=== PATIENT | male | born 1955 | race Caucasian/White ===

== ENCOUNTER 2017-02-05 08:52 | Outpatient (CLI) | payer OTHER | END 2017-02-05 08:53 | disposition home or self-care (01) | DX: Z79.899 Other long term (current) drug therapy (principal); E11.9 Type 2 diabetes mellitus without complications; E55.9 Vitamin D deficiency, unspecified; Z12.5 Encounter for screening for malignant neoplasm of prostate ==

== ENCOUNTER 2017-04-02 05:52 | Day surgery (SDC) | payer MEDICARE, OTHER ==
[2017-04-02] MEDS ORDERED: LACTATED RINGERS 1,000 ML IV ONE (06:45)
[2017-04-02] MEDS ORDERED: MIDAZOLAM 2 MG/2 ML VIAL IVP ONE (08:45)
[2017-04-02] MEDS ORDERED: fentaNYL 100 MCG/2 ML VIAL IVP ONE (08:45)
[2017-04-02 09:47] VITALS: BP 113/60
== END 2017-04-02 05:53 | disposition home or self-care (01) ==
LOC: SDS 05:52
PROVIDERS: ATTEND Surgery
PROC: 0DBL8ZX Excision of Transverse Colon, Via Natural or Artificial Opening Endoscopic, Diagnostic (ICD-10-PCS; 2017-04-02)
PROC: 0DBK8ZX Excision of Ascending Colon, Via Natural or Artificial Opening Endoscopic, Diagnostic (ICD-10-PCS; principal; 2017-04-02 07:30)
DX: Z12.11 Encounter for screening for malignant neoplasm of colon (principal); D12.3 Benign neoplasm of transverse colon; K64.8 Other hemorrhoids; Z80.0 Family history of malignant neoplasm of digestive organs; E11.9 Type 2 diabetes mellitus without complications; Z79.84 Long term (current) use of oral hypoglycemic drugs; E66.9 Obesity, unspecified; K52.9 Noninfective gastroenteritis and colitis, unspecified; J45.909 Unspecified asthma, uncomplicated; G47.30 Sleep apnea, unspecified; K21.9 Gastro-esophageal reflux disease without esophagitis; Z96.641 Presence of right artificial hip joint; Z82.49 Family history of ischemic heart disease and other diseases of the circulatory system; Z86.73 Personal history of transient ischemic attack (TIA), and cerebral infarction without residual deficits; Z83.3 Family history of diabetes mellitus; Z88.5 Allergy status to narcotic agent; Z87.891 Personal history of nicotine dependence; Z68.34 Body mass index [BMI] 34.0-34.9, adult
CPT/HCPCS: 45385; J7120; 88305

== ENCOUNTER 2017-05-24 19:35 | Emergency (ER) | payer MEDICARE ==
[2017-05-24] MEDS ORDERED: LIDOCAINE 2%-EPI 1:100000 20 ML MDV SUBQ STA (21:00)
--- NOTE | 2017-05-24 21:01 | ED Physician Documentation ---
History of Present Illness - Stated complaint Stated Complaint: GROWTH ON BACKSIDE - Chief complaint Chief Complaint: General - History obtained from History obtained from: Patient, Family - History of Present Illness Timing: How many days ago (4) Pain level max: 5 Pain level now: 5 Quality: pain Improved by: nothing Worsened by: nothing - Additonal information Additional information: states abscess to buttock on the R side. Has recurred a few times. States normally can "pop" it. also states white discharge and itching under the foreskin. Review of Systems Constitutional: denies: Fever, Chills Respiratory: denies: Cough GI: denies: Nausea, Vomiting, Diarrhea : denies: Dysuria Skin: denies: Rash Musculoskeletal: denies: Neck pain, Back pain Neurologic: denies: Headache PD PAST MEDICAL HISTORY - Past Medical History Cardiovascular: None Respiratory: None Neuro: None Endocrine/Autoimmune: Type 2 diabetes GI: None : None HEENT: None, Other Psych: None Musculoskeletal: Osteoarthritis, Chronic back pain, Other Derm: Psoriasis, Other - Past Surgical History Past Surgical History: Yes Ortho: Hip replacement, Other - Present Medications Home Medications: Ambulatory Orders Medication Instructions Recorded Confirmed Albuterol Sulf [Ventolin Hfa 1 PRN 04/02/17 Inhaler] Aspirin [Aspirin EC] 1 DAILY 04/02/17 Canagliflozin [Invokana] 1 DAILY 04/02/17 Dicyclomine [Bentyl] 3 BID 04/02/17 Gabapentin [Neurontin] 1 TID 04/02/17 Glipizide [Glipizide ER] 1 BID 04/02/17 Losartan [Cozaar] 0.5 DAILY 04/02/17 Modafinil [Provigil] 1 DAILY 04/02/17 Montelukast [Singulair] 1 DAILY 04/02/17 Omeprazole [Omeprazole] 1 BID 04/02/17 Prednicarbate [Dermatop] 1 BID 04/02/17 Simvastatin [Zocor] 1 DAILY 04/02/17 Tiotropium [place] [Spiriva 1 DAILY 04/02/17 Respimat] metFORMIN [Glucophage] 2 DAILY 04/02/17 traZODone [Desyrel] 1 DAILY PM 04/02/17 Clindamycin [Cleocin] 300 mg PO Q6H #28 capsule 05/24/17 Nystatin Cream [Mycostatin Cream] 1 applic TOP BID #1 tube 05/24/17 - Allergies Allergies/Adverse Reactions: Allergies Allergy/AdvReac Type Severity Reaction Status Date / Time acetaminophen [From Vicodin] AdvReac Itching Verified 05/24/17 19:43 hydrocodone bitartrate * AdvReac Itching Verified 05/24/17 19:43 [From Vicodin] - Social History Does the pt smoke?: No Smoking Status: Never smoker Does the pt drink ETOH?: No Does the pt have substance abuse?: No - Immunizations Immunizations are current?: Yes PD ED PE NORMAL - Vitals Vital signs reviewed: Yes - General General: Alert and oriented X 3, No acute distress - Neck Neck: Supple, no meningeal sign - Respiratory Respiratory: No respiratory distress, Clear bilaterally - Abdomen Abdomen: Soft, Non tender, Non distended - Male Male : Other (white thick discharge under the foreskin. Also 2x4cm abscess to R gluteal fold. indurated, fluctuant) - Derm Derm: Warm and dry - Neuro Neuro: Alert and oriented X 3 - Psych Psych: Normal mood, Normal affect Results - Vitals Vitals: Vital Signs - 24 hr 05/24/17 05/24/17 19:39 21:44 Temperature 36.7 C Heart Rate 76 70 Respiratory 16 20 Rate Blood Pressure 153/82 H 146/76 H O2 Saturation 97 100 Oxygen O2 Source Room air Procedures - Abscess I&D (location) R gluteal fold Preparation: Confirmed with ultrasound, Chlorhexadine, Lidocaine 2 %, With epi Incision: Incised with scalpel, Purulent drainage, Irrigated, Packed, Culture obtained Other: Pt tolerated well, Dressing applied, Antibiotic prescribed PD MEDICAL DECISION MAKING - ED course Complexity details: considered differential, d/w patient ED course: Patient is a 61-year-old gentleman who presents with 2 issues tonight, the first appears to be a candidal infection of the glans of the penis, will place on nystatin for this. The second appears to be a infected pilonidal cyst. This was incised and drained. Tolerated well. Wound culture sent. Will place on antibiotics. Patient is overall well-appearing, nontoxic. Afebrile. Patient counseled regarding signs and symptoms for which I believe and urgent re -evaluation would be necessary. Patient with good understanding of and agreement to plan and is comfortable going home at this time This document was made in part using voice recognition software. While efforts are made to proofread this document, sound alike and grammatical errors may occur. Departure - Departure Disposition: 01 Home, Self Care Clinical Impression: Balanitis, Pilonidal abscess Condition: Good Instructions: ED Balanitis, ED Cyst Pilonidal Infected IandD Follow-Up: Radha Ann PA-C [Primary Care Provider] - Within 3 Days Prescriptions: Clindamycin [Cleocin] 300 mg PO Q6H #28 capsule Nystatin Cream [Mycostatin Cream] 1 applic TOP BID #1 tube Comments: Return if you worsen. The packing should be removed in 2-3 days with your doctor. Discharge Date/Time: 05/24/17 21:44
[2017-05-24] MEDS ORDERED: LIDOCAINE 1%-EPI 1:100000 20 ML MDV ONE (21:02)
[2017-05-24 21:44] VITALS: BP 146/76
== END 2017-05-24 21:44 | disposition home or self-care (01) ==
LOC: ED 19:35
DX: N48.1 Balanitis (principal); L02.31 Cutaneous abscess of buttock; E11.9 Type 2 diabetes mellitus without complications; Z79.84 Long term (current) use of oral hypoglycemic drugs; Z79.82 Long term (current) use of aspirin
CPT/HCPCS: 10060; 87070; 87205; 99283

== ENCOUNTER 2017-07-25 07:09 | Outpatient (CLI) | payer MEDICARE ==
[2017-07-25 11:52] LABS: CHOLESTEROL 149 mg/dL; HDL CHOLESTEROL 30 mg/dL; LDL/HDL RATIO 1.5 (<3.6); TRIGLYCERIDES 377 mg/dL; VLDL CHOLESTEROL 75 mg/dL
[2017-07-25 12:05] LABS: HEMOGLOBIN A1C 0.74 g/dL
== END 2017-07-25 07:10 | disposition home or self-care (01) ==
LOC: LAB.F 07:09
PROVIDERS: ATTEND Physician Assistant Medical
DX: E78.5 Hyperlipidemia, unspecified (principal); E11.9 Type 2 diabetes mellitus without complications
CPT/HCPCS: 36415; 80061; 83036

== ENCOUNTER 2017-10-24 07:47 | Outpatient (CLI) | payer OTHER ==
[2017-10-24 10:55] LABS: CHOL/HDL RATIO 4.3 (<5.0); CHOLESTEROL 126 mg/dL; HDL CHOLESTEROL 29 mg/dL; LDL/HDL RATIO 1.2 (<3.6); TRIGLYCERIDES 316 mg/dL; VLDL CHOLESTEROL 63 mg/dL
== END 2017-10-24 07:48 | disposition home or self-care (01) ==
LOC: LAB.F 07:47
PROVIDERS: ATTEND Physician Assistant Medical
DX: E78.5 Hyperlipidemia, unspecified (principal)
CPT/HCPCS: 36415; 80061

== ENCOUNTER 2017-11-20 08:18 | Outpatient (CLI) | payer MEDICARE | END 2017-11-20 08:19 | disposition critical access hospital (66) | LOC: EMS 08:18 | PROVIDERS: ATTEND Surgery | DX: R10.13 Epigastric pain (principal) | CPT/HCPCS: A0425; A0427 ==

== ENCOUNTER 2017-11-20 08:46 | Emergency (ER) | payer MEDICARE ==
[2017-11-20 09:33] LABS: BASOPHILS # (AUTO) 0.1 10^3/uL (0.0-0.1); BASOPHILS % (AUTO) 0.3 %; EOSINOPHILS % (AUTO) 0.2 %; HGB - HEMOGLOBIN 18.4 g/dL (14.0-18.0); LYMPHOCYTES # (AUTO) 0.7 10^3/uL (1.5-3.5); LYMPHOCYTES % (AUTO) 3.5 %; MEAN CORPUSCULAR HEMOGLOBIN 29.3 pg (27.0-31.0); MEAN CORPUSCULAR HGB CONC 33.9 g/dL (32.0-36.0); MEAN CORPUSCULAR VOLUME 86.4 fL (80.0-94.0); MEAN PLATELET VOLUME 8.8 fL (7.4-11.4); MONOCYTES # (AUTO) 0.8 10^3/uL (0.0-1.0); MONOCYTES % (AUTO) 4.1 %; NEUTROPHILS % (AUTO) 91.9 %; PLT - PLATELET COUNT 172 10^3/uL (130-450); RED BLOOD COUNT 6.29 10^6/uL (4.70-6.10); RED CELL DISTRIBUTION WIDTH 14.9 % (12.0-15.0); WHITE BLOOD COUNT 19.6 x10^3/uL (4.8-10.8)
[2017-11-20 09:47] LABS: ALBUMIN 5.2 g/dL (3.2-5.5); ALBUMIN/GLOBULIN RATIO 1.5 (1.0-2.2); BILIRUBIN,TOTAL 0.9 mg/dL (0.2-1.0); CALCIUM 9.8 mg/dL (8.5-10.3); CREATININE 1.2 mg/dL (0.6-1.2); PHOSPHORUS 1.8 mg/dL (2.5-4.6); TOTAL PROTEIN 8.6 g/dL (6.7-8.2)
[2017-11-20] MEDS ORDERED: IOPAMIDOL-300 100 ML VIAL ONE (09:55)
[2017-11-20] MEDS ORDERED: SODIUM CHLORIDE 0.9% 1,000 ML IV ONE (10:08)
[2017-11-20] MEDS ORDERED: IOPAMIDOL-300 100 ML VIAL IVP ONE (10:24)
--- NOTE | 2017-11-20 10:55 | CT Preliminary Report ---
Exam: CT ABDOMEN/PELVIS W/ IMPRESSION: 1. Findings are most compatible with diarrheal illness. No bowel obstruction. 2. Probable hepatic steatosis. [facility] SITE ID: [id number]
--- NOTE | 2017-11-20 10:56 | CT Report ---
EXAM: CT ABDOMEN AND PELVIS EXAM DATE: 11/20/2017 10:25 AM. CLINICAL HISTORY: Epigastric pain, diarrhea. COMPARISONS: None. TECHNIQUE: Routine helical CT imaging was performed through the abdomen and pelvis. IV contrast: 100C C ISOVUE 300. Enteric contrast: No. Reconstructions: Coronal and sagittal. In accordance with CT protocol optimization, one or more of the following dose reduction techniques w ere utilized for this exam: automated exposure control, adjustment of mA and/or KV based on patient s ize, or use of iterative reconstructive technique. FINDINGS: Lung Bases: Unremarkable. Liver: Diffusely decreased parenchymal attenuation without focal abnormality. Gallbladder/Bile Ducts: Unremarkable. Spleen: Normal. Pancreas: Normal. Adrenal Glands: Normal. Kidneys: No significant abnormality. Peritoneal Cavity/Bowel: No ascites or pneumoperitoneum. No bowel obstruction. There is a mild-to-mod erate amount of fluid throughout the colon and small bowel. Minimal diverticulosis without diverticul itis. No bowel wall thickening. No focal inflammatory fat stranding. The appendix is well visualized and normal. Pelvic Organs: Suboptimal evaluation secondary to streak artifact. No significant abnormality is demo nstrated. Vasculature: Mild atherosclerosis. Otherwise within normal limits. Bones: No significant abnormality. Other: Generator or pump in the left paramedian posterior subcutaneous soft tissues with an ascending catheter, partially imaged. IMPRESSION: 1. Findings are most compatible with diarrheal illness. No bowel obstruction. 2. Probable hepatic steatosis. [facility] Referring Provider Line: [phone] SITE ID: [id number]
[2017-11-20] MEDS ORDERED: diazePAM 5 MG TABLET PO STA (11:25)
--- NOTE | 2017-11-20 11:40 | ED Physician Documentation ---
PD HPI ABD PAIN - Stated complaint Stated Complaint: ABD PX - Chief complaint Chief Complaint: Abd Pain - History obtained from History obtained from: Patient, Family, EMS - History of Present Illness Timing - onset: Today Timing - details: Abrupt onset, Still present Quality: Cramping, Aching, Indigestion Location: Epigastric Associated symptoms: Nausea, Diarrhea. No: Fever, Vomiting Similar symptoms before: Has not had sx before Recently seen: Not recently seen - Additional information Additional information: Patient is a 62 year old male with multiple co-morbidities who is presenting to the emergency department for abdominal pain and diarrhea. patient states that it started this morning and got progressively worse, so he called ems. Review of Systems Constitutional: denies: Fever, Chills Ears: denies: Ear pain Nose: reports: Reviewed and negative Throat: reports: Reviewed and negative Cardiac: denies: Chest pain / pressure, Palpitations Respiratory: denies: Dyspnea, Cough, Wheezing GI: reports: Abdominal Pain, Nausea, Diarrhea. denies: Vomiting : denies: Dysuria, Frequency Skin: denies: Rash, Lesions Musculoskeletal: denies: Back pain, Extremity pain Neurologic: reports: Reviewed and negative Psychiatric: reports: Reviewed and negative Immunocompromised: denies: Immunocompromised PD PAST MEDICAL HISTORY - Past Medical History Past Medical History: Yes Cardiovascular: None Respiratory: Asthma, COPD Neuro: None Endocrine/Autoimmune: Type 2 diabetes GI: None : None HEENT: None, Other Psych: None Musculoskeletal: Osteoarthritis, Chronic back pain, Other Derm: Psoriasis, Other - Past Surgical History Past Surgical History: Yes Ortho: Hip replacement, Other - Present Medications Home Medications: Ambulatory Orders Medication Instructions Recorded Confirmed Albuterol Sulf [Ventolin Hfa 1 PRN 04/02/17 Inhaler] Aspirin [Aspirin EC] 1 DAILY 04/02/17 Canagliflozin [Invokana] 1 DAILY 04/02/17 Dicyclomine [Bentyl] 3 BID 04/02/17 Gabapentin [Neurontin] 1 TID 04/02/17 Glipizide [Glipizide ER] 1 BID 04/02/17 Losartan [Cozaar] 0.5 DAILY 04/02/17 Modafinil [Provigil] 1 DAILY 04/02/17 Montelukast [Singulair] 1 DAILY 04/02/17 Omeprazole [Omeprazole] 1 BID 04/02/17 Prednicarbate [Dermatop] 1 BID 04/02/17 Simvastatin [Zocor] 1 DAILY 04/02/17 traZODone [Desyrel] 1 DAILY PM 04/02/17 Clindamycin [Cleocin] 300 mg PO Q6H #28 capsule 05/24/17 Nystatin Cream [Mycostatin Cream] 1 applic TOP BID #1 tube 05/24/17 Dicyclomine [Bentyl] 10 mg PO QID #14 capsule 11/20/17 Ondansetron Odt [Zofran] 4 mg TL Q6H PRN #14 tablet 11/20/17 - Allergies Allergies/Adverse Reactions: Allergies Allergy/AdvReac Type Severity Reaction Status Date / Time acetaminophen [From Vicodin] AdvReac Itching Verified 11/20/17 09:09 hydrocodone bitartrate * AdvReac Itching Verified 11/20/17 09:09 [From Vicodin] - Social History Does the pt smoke?: No Smoking Status: Never smoker Does the pt drink ETOH?: No Does the pt have substance abuse?: No - Immunizations Immunizations are current?: Yes PD ED PE NORMAL - Vitals Vital signs reviewed: Yes - General General: Alert and oriented X 3, Well developed/nourished - HEENT HEENT: Atraumatic, PERRL, Moist mucous membranes - Neck Neck: Supple, no meningeal sign - Cardiac Cardiac: RRR, No murmur - Respiratory Respiratory: No respiratory distress - Abdomen Abdomen: Soft - Derm Derm: Normal color, Warm and dry, No rash - Extremities Extremities: No deformity, No edema - Neuro Neuro: Alert and oriented X 3, No motor deficit, No sensory deficit, Normal speech PD ED PE EXPANDED - HEENT HEENT: Moist mucous membranes - Abdomen Abdomen: Hyperactive BS, Tender to palpation, Epigastric, Generalized/diffuse. No: Rebound, Guarding Results - Vitals Vitals: Vital Signs - 24 hr 11/20/17 08:47 Temperature 35.7 C L Heart Rate 72 Respiratory 17 Rate Blood Pressure 172/117 H O2 Saturation 94 Oxygen O2 Source Room air - Labs Labs: Laboratory Tests 11/20/17 11/20/17 09:23 09:23 WBC 19.6 H RBC 6.29 H Hgb 18.4 H Hct 54.4 H MCV 86.4 MCH 29.3 MCHC 33.9 RDW 14.9 Plt Count 172 MPV 8.8 Neut # 18.0 H Lymph # 0.7 L [place] # 0.8 Eos # 0.0 Baso # 0.1 Absolute Nucleated RBC 0.06 Nucleated RBC % 0.3 Sodium 136 Potassium 3.7 Chloride 103 Carbon Dioxide 18 L Anion Gap 15.0 H BUN 16 Creatinine 1.2 Estimated GFR (MDRD) 62 L Glucose 188 H Calcium 9.8 Phosphorus 1.8 L Magnesium 2.0 Total Bilirubin 0.9 AST 40 ALT 28 Alkaline Phosphatase 123 H Total Protein 8.6 H Albumin 5.2 Globulin 3.4 Albumin/Globulin Ratio 1.5 Lipase 25 - Rads (name of study) ct abdomen and pelvis Radiology: Final report received (findings consistent with gastritis) PD MEDICAL DECISION MAKING - ED course Complexity details: reviewed old records, reviewed results, re-evaluated patient , considered differential, d/w patient, d/w family ED course: Patient was seen and examined at bedside. IV access was gained and labs were drawn. fluids and imaging were ordered. When patient returned from imaging the results were reviewed. patient's findings were consistent with gastritis, likely viral in nature. patient was able to tolerate PO without difficulty. patient required no further work up at this time and was stable for discharge with outpatient follow up. Departure - Departure Disposition: 01 Home, Self Care Clinical Impression: Gastroenteritis Condition: Good Instructions: ED Gastroenteritis Viral Follow-Up: Radha Ann PA-C [Primary Care Provider] - Within 3 Days Prescriptions: Dicyclomine [Bentyl] 10 mg PO QID #14 capsule Ondansetron Odt [Zofran] 4 mg TL Q6H PRN #14 tablet PRN Reason: Nausea / Vomiting Comments: Your diagnostics today were consistent with a gastroenteritis, likely viral in nature. It is normally self limited meaning that it will get better on its own. The most important thing is to stay well hydrated with gatorade or electrolyle solution. You can take your home pain medications as necessary. You should follow up with your doctor if your symptoms persist. You may return to the emergency department at any time, for new, worsening or uncontrollable symptoms.
[2017-11-20 13:45] VITALS: BP 126/73
== END 2017-11-20 11:52 | disposition home or self-care (01) ==
LOC: EDUNIT# → ED 08:46
DX: K52.9 Noninfective gastroenteritis and colitis, unspecified (principal); J44.9 Chronic obstructive pulmonary disease, unspecified; E11.9 Type 2 diabetes mellitus without complications; Z79.82 Long term (current) use of aspirin
CPT/HCPCS: 36415; 74177; 80053; 83690; 83735; 84100; 85025; 96360; 99283; 99284; A9270; Q9967

== ENCOUNTER 2017-12-06 09:02 | Outpatient (CLI) | payer MEDICARE ==
[2017-12-06 10:33] LABS: HB2 TOTAL 17.2 g/dL; HEMOGLOBIN A1C 0.8 g/dL; HEMOGLOBIN A1C % 6.4 % (4.6-6.2)
== END 2017-12-06 09:03 | disposition home or self-care (01) ==
LOC: LAB.F 09:02
PROVIDERS: ATTEND Physician Assistant Medical
DX: E11.9 Type 2 diabetes mellitus without complications (principal)
CPT/HCPCS: 36415; 83036

== ENCOUNTER 2018-02-25 10:59 | Outpatient (CLI) | payer MEDICARE | END 2018-02-25 11:00 | disposition home or self-care (01) | LOC: SC 10:59 | PROVIDERS: ATTEND Internal Medicine Pulmonary Disease | DX: G47.33 Obstructive sleep apnea (adult) (pediatric) (principal) | CPT/HCPCS: 99203; G0463; 99212 ==

== ENCOUNTER 2018-03-15 14:03 | Outpatient (CLI) | payer MEDICARE ==
[2018-03-15 17:47] LABS: BASOPHILS % (AUTO) 0.2 %; EOSINOPHILS # (AUTO) 0.1 10^3/uL (0.0-0.7); EOSINOPHILS % (AUTO) 0.9 %; HGB - HEMOGLOBIN 17.2 g/dL (14.0-18.0); LYMPHOCYTES # (AUTO) 0.7 10^3/uL (1.5-3.5); LYMPHOCYTES % (AUTO) 5.9 %; MEAN CORPUSCULAR HEMOGLOBIN 28.4 pg (27.0-31.0); MEAN CORPUSCULAR VOLUME 85.9 fL (80.0-94.0); MEAN PLATELET VOLUME 9.5 fL (7.4-11.4); MONOCYTES # (AUTO) 1.3 10^3/uL (0.0-1.0); MONOCYTES % (AUTO) 10.8 %; NEUTROPHILS # (AUTO) 9.6 10^3/uL (1.5-6.6); NEUTROPHILS % (AUTO) 82.2 %; PLT - PLATELET COUNT 143 10^3/uL (130-450); RED BLOOD COUNT 6.05 10^6/uL (4.70-6.10); RED CELL DISTRIBUTION WIDTH 15.2 % (12.0-15.0); WHITE BLOOD COUNT 11.7 x10^3/uL (4.8-10.8)
== END 2018-03-15 14:04 | disposition home or self-care (01) ==
LOC: LAB.F 14:03
PROVIDERS: ATTEND Orthopaedic Surgery
DX: Z01.812 Encounter for preprocedural laboratory examination (principal)
CPT/HCPCS: 36415; 85025

== ENCOUNTER 2018-04-01 15:22 | Outpatient (CLI) | payer MEDICARE ==
[2018-04-01 18:32] LABS: CALCIUM 9.2 mg/dL (8.5-10.3); CREATININE 0.9 mg/dL (0.6-1.2); HB2 TOTAL 15.7 g/dL; HEMOGLOBIN A1C 0.78 g/dL; HEMOGLOBIN A1C % 6.7 % (4.6-6.2)
== END 2018-04-01 15:23 | disposition home or self-care (01) ==
LOC: LAB.F 15:22
PROVIDERS: ATTEND Internal Medicine
DX: E11.9 Type 2 diabetes mellitus without complications (principal)
CPT/HCPCS: 36415; 80048; 82043; 83036

== ENCOUNTER 2018-04-02 15:26 | Outpatient (CLI) | payer MEDICARE | END 2018-04-02 15:27 | disposition home or self-care (01) | LOC: LAB.R 15:26 | PROVIDERS: ATTEND Internal Medicine | DX: E11.9 Type 2 diabetes mellitus without complications (principal) | CPT/HCPCS: 82043 ==

== ENCOUNTER 2018-04-13 21:22 | Outpatient (CLI) | payer MEDICARE | END 2018-04-13 21:23 | disposition home or self-care (01) | LOC: SC 21:22 | PROVIDERS: ATTEND Internal Medicine Pulmonary Disease | DX: G47.33 Obstructive sleep apnea (adult) (pediatric) (principal); G47.61 Periodic limb movement disorder | CPT/HCPCS: 95810 ==

== ENCOUNTER 2018-04-25 07:15 | Outpatient (CLI) | payer MEDICARE ==
[2018-04-25 15:53] LABS: ALBUMIN 4.4 g/dL (3.2-5.5); ALBUMIN/GLOBULIN RATIO 1.5 (1.0-2.2); BILIRUBIN,TOTAL 0.7 mg/dL (0.2-1.0); CALCIUM 9.5 mg/dL (8.5-10.3); TOTAL PROTEIN 7.4 g/dL (6.7-8.2)
[2018-04-25 16:05] LABS: BASOPHILS % (AUTO) 0.4 %; EOSINOPHILS # (AUTO) 0.2 10^3/uL (0.0-0.7); EOSINOPHILS % (AUTO) 2.6 %; HGB - HEMOGLOBIN 14.8 g/dL (14.0-18.0); LYMPHOCYTES # (AUTO) 1.7 10^3/uL (1.5-3.5); LYMPHOCYTES % (AUTO) 21.5 %; MEAN CORPUSCULAR HEMOGLOBIN 29.1 pg (27.0-31.0); MEAN CORPUSCULAR VOLUME 85.6 fL (80.0-94.0); MEAN PLATELET VOLUME 9.4 fL (7.4-11.4); MONOCYTES # (AUTO) 0.6 10^3/uL (0.0-1.0); MONOCYTES % (AUTO) 6.9 %; NEUTROPHILS # (AUTO) 5.5 10^3/uL (1.5-6.6); NEUTROPHILS % (AUTO) 68.6 %; PLT - PLATELET COUNT 135 10^3/uL (130-450); RED BLOOD COUNT 5.08 10^6/uL (4.70-6.10); WHITE BLOOD COUNT 8.1 x10^3/uL (4.8-10.8)
[2018-04-26 13:42] LABS: HEPATITIS B SURFACE ANTIGEN NON-REACTIVE (NON-REACTIVE); HEPATITIS C ANTIBODY NON-REACTIVE (NON-REACTIVE)
[2018-04-26 14:06] LABS: HIV AG/AB 4TH GEN NON-REACTIVE (NON-REACTIVE)
== END 2018-04-25 07:16 | disposition home or self-care (01) ==
LOC: LAB.F 07:15 → LAB 07:16
PROVIDERS: ATTEND Physician Assistant
DX: L40.0 Psoriasis vulgaris (principal); L29.8 Other pruritus; Z71.89 Other specified counseling; Z79.899 Other long term (current) drug therapy
CPT/HCPCS: 36415; 80053; 81599; 85025; 86803; 87340; G0475; 86480; 86703; 87389

== ENCOUNTER 2018-05-30 13:31 | Outpatient (CLI) | payer MEDICARE | END 2018-05-30 13:32 | disposition home or self-care (01) | LOC: SC 13:31 | PROVIDERS: ATTEND Nurse Practitioner Family | DX: G47.33 Obstructive sleep apnea (adult) (pediatric) (principal); G47.61 Periodic limb movement disorder | CPT/HCPCS: 99215; G0463; 99212 ==

== ENCOUNTER 2018-06-13 07:18 | Outpatient (CLI) | payer MEDICARE ==
[2018-06-13 11:46] LABS: BASOPHILS % (AUTO) 0.6 %; EOSINOPHILS # (AUTO) 0.2 10^3/uL (0.0-0.7); EOSINOPHILS % (AUTO) 2.5 %; HGB - HEMOGLOBIN 14.2 g/dL (14.0-18.0); LYMPHOCYTES # (AUTO) 1.5 10^3/uL (1.5-3.5); LYMPHOCYTES % (AUTO) 24.7 %; MEAN CORPUSCULAR HGB CONC 34.3 g/dL (32.0-36.0); MEAN CORPUSCULAR VOLUME 90.3 fL (80.0-94.0); MEAN PLATELET VOLUME 9.8 fL (7.4-11.4); MONOCYTES # (AUTO) 0.6 10^3/uL (0.0-1.0); MONOCYTES % (AUTO) 9.1 %; NEUTROPHILS # (AUTO) 3.9 10^3/uL (1.5-6.6); NEUTROPHILS % (AUTO) 63.1 %; PLT - PLATELET COUNT 118 10^3/uL (130-450); RED BLOOD COUNT 4.59 10^6/uL (4.70-6.10); WHITE BLOOD COUNT 6.2 x10^3/uL (4.8-10.8)
[2018-06-13 12:04] LABS: ALBUMIN 4.1 g/dL (3.2-5.5); ALBUMIN/GLOBULIN RATIO 1.6 (1.0-2.2); ALKALINE PHOSPHATASE 100 IU/L (42-121); ALT ALANINE AMINOTRANSFERASE 27 IU/L (10-60); AST ASPARTATE AMINOTRANSFERASE 46 IU/L (10-42); BILIRUBIN,TOTAL 0.9 mg/dL (0.2-1.0); BUN - BLOOD UREA NITROGEN 10 mg/dL (6-20); CALCIUM 9.2 mg/dL (8.5-10.3); CARBON DIOXIDE - CO2 26 mmol/L (21-32); CHLORIDE 103 mmol/L (101-111); CHOL/HDL RATIO 5.7 (<5.0); CHOLESTEROL 153 mg/dL; CREATININE 0.9 mg/dL (0.6-1.2); GFR - MDRD 86 (>89); GLUCOSE 211 mg/dL (70-100); HDL CHOLESTEROL 27 mg/dL; SODIUM 136 mmol/L (135-145); TOTAL PROTEIN 6.7 g/dL (6.7-8.2)
[2018-06-13 12:08] LABS: HB2 TOTAL 14.9 g/dL; HEMOGLOBIN A1C 0.89 g/dL; HEMOGLOBIN A1C % 7.6 % (4.6-6.2)
[2018-06-13 12:46] LABS: LDL CHOLESTEROL,DIRECT 45 mg/dL; LDLD/HDL RATIO 1.7 (<3.6)
== END 2018-06-13 07:19 | disposition home or self-care (01) ==
LOC: LAB.F 07:18
PROVIDERS: ATTEND Student in an Organized Health Care Education/Training Program
DX: E11.9 Type 2 diabetes mellitus without complications (principal)
CPT/HCPCS: 36415; 80053; 80061; 82043; 83036; 83721; 84443; 85025

== ENCOUNTER 2018-08-15 14:03 | Outpatient (CLI) | payer MEDICARE | END 2018-08-15 14:04 | disposition home or self-care (01) | LOC: RT.S 14:03 | DX: Z01.810 Encounter for preprocedural cardiovascular examination (principal) | CPT/HCPCS: 93005 ==

== ENCOUNTER 2018-08-22 07:38 | Outpatient (CLI) | payer MEDICARE ==
[2018-08-22 10:22] LABS: CALCIUM 9.2 mg/dL (8.5-10.3)
[2018-08-22 10:53] LABS: BASOPHILS % (AUTO) 0.6 %; EOSINOPHILS # (AUTO) 0.2 10^3/uL (0.0-0.7); EOSINOPHILS % (AUTO) 2.8 %; HGB - HEMOGLOBIN 14.8 g/dL (14.0-18.0); LYMPHOCYTES # (AUTO) 1.5 10^3/uL (1.5-3.5); LYMPHOCYTES % (AUTO) 21.7 %; MEAN CORPUSCULAR HEMOGLOBIN 31.1 pg (27.0-31.0); MEAN CORPUSCULAR HGB CONC 35.1 g/dL (32.0-36.0); MEAN CORPUSCULAR VOLUME 88.5 fL (80.0-94.0); MEAN PLATELET VOLUME 10.5 fL (7.4-11.4); MONOCYTES # (AUTO) 0.6 10^3/uL (0.0-1.0); NEUTROPHILS # (AUTO) 4.5 10^3/uL (1.5-6.6); NEUTROPHILS % (AUTO) 65.9 %; PLT - PLATELET COUNT 110 10^3/uL (130-450); RED BLOOD COUNT 4.76 10^6/uL (4.70-6.10); RED CELL DISTRIBUTION WIDTH 13.2 % (12.0-15.0); WHITE BLOOD COUNT 6.9 x10^3/uL (4.8-10.8)
[2018-08-22 11:04] LABS: INR 1.1 (0.8-1.2); PT - PROTHROMBIN TIME 12.2 secs (9.9-12.6)
[2018-08-22 11:39] LABS: HB2 TOTAL 15.6 g/dL; HEMOGLOBIN A1C 0.88 g/dL; HEMOGLOBIN A1C % 7.3 % (4.6-6.2)
== END 2018-08-22 07:39 | disposition home or self-care (01) ==
LOC: LAB.F 07:38
PROVIDERS: ATTEND Orthopaedic Surgery Orthopaedic Surgery of the Spine
DX: M47.22 Other spondylosis with radiculopathy, cervical region (principal)
CPT/HCPCS: 36415; 80048; 83036; 85025; 85610; 85730

== ENCOUNTER 2018-12-12 10:12 | Outpatient (CLI) | payer MEDICARE ==
[2018-12-12 18:18] LABS: HB2 TOTAL 16.1 g/dL; HEMOGLOBIN A1C 0.83 g/dL; HEMOGLOBIN A1C % 6.9 % (4.6-6.2)
[2018-12-12 18:30] LABS: ALBUMIN 4.3 g/dL (3.2-5.5); BUN - BLOOD UREA NITROGEN 9 mg/dL (6-20); CALCIUM 9.1 mg/dL (8.5-10.3); CARBON DIOXIDE - CO2 29 mmol/L (21-32); CHLORIDE 101 mmol/L (101-111); CHOLESTEROL 141 mg/dL; CREATININE 0.8 mg/dL (0.6-1.2); GFR - MDRD 98 (>89); GLUCOSE 99 mg/dL (70-100); HDL CHOLESTEROL 35 mg/dL; LDL CHOLESTEROL,CALCULATED 71 mg/dL; SODIUM 137 mmol/L (135-145); VLDL CHOLESTEROL 35 mg/dL
[2018-12-12 18:33] LABS: CREATININE,URINE 52.8 mg/dL
[2018-12-12 18:34] LABS: MICROALBUMIN,URINE < 0.2 mg/dL (0-300.0)
== END 2018-12-12 10:13 | disposition home or self-care (01) ==
LOC: LAB.F 10:12
PROVIDERS: ATTEND Student in an Organized Health Care Education/Training Program
DX: E11.9 Type 2 diabetes mellitus without complications (principal); Z79.4 Long term (current) use of insulin
CPT/HCPCS: 36415; 80061; 80069; 82043; 82570; 83036; 83721

== ENCOUNTER 2019-01-31 07:22 | Outpatient (CLI) | payer MEDICARE ==
[2019-01-31 10:15] LABS: CALCIUM 8.6 mg/dL (8.5-10.3); CREATININE 0.9 mg/dL (0.6-1.2)
[2019-01-31 10:24] LABS: HGB - HEMOGLOBIN 14.3 g/dL (14.0-18.0); MEAN CORPUSCULAR HEMOGLOBIN 29.8 pg (27.0-31.0); MEAN CORPUSCULAR HGB CONC 34.8 g/dL (32.0-36.0); MEAN CORPUSCULAR VOLUME 85.6 fL (80.0-94.0); MEAN PLATELET VOLUME 10.5 fL (7.4-11.4); RED BLOOD COUNT 4.79 10^6/uL (4.70-6.10); WHITE BLOOD COUNT 5.9 x10^3/uL (4.8-10.8)
[2019-01-31 10:42] LABS: HB2 TOTAL 15.7 g/dL; HEMOGLOBIN A1C 0.77 g/dL; HEMOGLOBIN A1C % 6.6 % (4.6-6.2)
== END 2019-01-31 07:23 | disposition home or self-care (01) ==
LOC: LAB.F 07:22
PROVIDERS: ATTEND Orthopaedic Surgery Orthopaedic Surgery of the Spine
DX: Z01.818 Encounter for other preprocedural examination (principal); R73.9 Hyperglycemia, unspecified
CPT/HCPCS: 80048; 83036; 85025; 85027

== ENCOUNTER 2019-02-04 08:14 | Outpatient (CLI) | payer MEDICARE ==
[2019-02-04 11:37] LABS: BASOPHILS % (AUTO) 0.6 %; EOSINOPHILS # (AUTO) 0.1 10^3/uL (0.0-0.7); EOSINOPHILS % (AUTO) 2.2 %; HGB - HEMOGLOBIN 10.6 g/dL (14.0-18.0); LYMPHOCYTES # (AUTO) 0.8 10^3/uL (1.5-3.5); LYMPHOCYTES % (AUTO) 18.3 %; MEAN CORPUSCULAR HEMOGLOBIN 29.8 pg (27.0-31.0); MEAN CORPUSCULAR HGB CONC 34.3 g/dL (32.0-36.0); MEAN CORPUSCULAR VOLUME 86.9 fL (80.0-94.0); MEAN PLATELET VOLUME 11.2 fL (7.4-11.4); MONOCYTES # (AUTO) 0.4 10^3/uL (0.0-1.0); MONOCYTES % (AUTO) 8.5 %; NEUTROPHILS # (AUTO) 3.1 10^3/uL (1.5-6.6); NEUTROPHILS % (AUTO) 70.4 %; PLT - PLATELET COUNT 83 10^3/uL (130-450); RED BLOOD COUNT 3.54 10^6/uL (4.70-6.10); RED CELL DISTRIBUTION WIDTH 13.4 % (12.0-15.0); WHITE BLOOD COUNT 4.4 x10^3/uL (4.8-10.8)
[2019-02-04 11:43] LABS: BILIRUBIN,TOTAL 0.7 mg/dL (0.2-1.0); CALCIUM 9.1 mg/dL (8.5-10.3)
[2019-02-04 11:44] LABS: ALBUMIN/GLOBULIN RATIO 1.6 (1.0-2.2); TOTAL PROTEIN 6.5 g/dL (6.7-8.2)
== END 2019-02-04 08:15 | disposition home or self-care (01) ==
LOC: LAB.F 08:14
PROVIDERS: ATTEND Physician Assistant Medical
DX: D69.6 Thrombocytopenia, unspecified (principal); L40.0 Psoriasis vulgaris
CPT/HCPCS: 36415; 80053; 85025

== ENCOUNTER 2019-02-09 21:34 | Outpatient (CLI) | payer MEDICARE | END 2019-02-09 21:35 | disposition critical access hospital (66) | LOC: EMS 21:34 | PROVIDERS: ATTEND Surgery | DX: R25.2 Cramp and spasm (principal); M54.9 Dorsalgia, unspecified; M79.602 Pain in left arm; M79.601 Pain in right arm; M79.605 Pain in left leg; M79.604 Pain in right leg | CPT/HCPCS: A0425; A0427 ==

== ENCOUNTER 2019-02-09 22:04 | Emergency (ER) | payer MEDICARE ==
[2019-02-09] MEDS ORDERED: SODIUM CHLORIDE 0.9% 1,000 ML IV ONE (22:19)
[2019-02-09] MEDS ORDERED: LORazepam 2 MG/ML VIAL IVP STA (22:19)
[2019-02-09] MEDS ORDERED: IBUPROFEN 800 MG TABLET PO STA (22:20)
[2019-02-09 22:40] LABS: BASOPHILS % (AUTO) 0.2 %; EOSINOPHILS % (AUTO) 0.5 %; HGB - HEMOGLOBIN 14.2 g/dL (14.0-18.0); LYMPHOCYTES # (AUTO) 0.3 10^3/uL (1.5-3.5); LYMPHOCYTES % (AUTO) 4.7 %; MEAN CORPUSCULAR HEMOGLOBIN 29.4 pg (27.0-31.0); MEAN CORPUSCULAR HGB CONC 33.4 g/dL (32.0-36.0); MEAN CORPUSCULAR VOLUME 88.1 fL (80.0-94.0); MEAN PLATELET VOLUME 9.2 fL (7.4-11.4); MONOCYTES # (AUTO) 0.3 10^3/uL (0.0-1.0); MONOCYTES % (AUTO) 4.9 %; NEUTROPHILS # (AUTO) 5.6 10^3/uL (1.5-6.6); NEUTROPHILS % (AUTO) 89.7 %; PLT - PLATELET COUNT 129 10^3/uL (130-450); RED BLOOD COUNT 4.82 10^6/uL (4.70-6.10); RED CELL DISTRIBUTION WIDTH 14.2 % (12.0-15.0); WHITE BLOOD COUNT 6.2 x10^3/uL (4.8-10.8)
[2019-02-09 22:53] LABS: ALBUMIN 3.9 g/dL (3.2-5.5); ALBUMIN/GLOBULIN RATIO 1.4 (1.0-2.2); BILIRUBIN,TOTAL 0.6 mg/dL (0.2-1.0); CALCIUM 8.6 mg/dL (8.5-10.3); TOTAL PROTEIN 6.7 g/dL (6.7-8.2)
[2019-02-09 22:55] LABS: BILIRUBIN,URINE NEGATIVE (NEGATIVE); GLUCOSE, URINE (UA) NEGATIVE (NEGATIVE); KETONES,URINE (UA) NEGATIVE (NEGATIVE); LEUKOCYTE ESTERASE, URINE NEGATIVE (NEGATIVE); NITRITE,URINE NEGATIVE (NEGATIVE); OCCULT BLOOD,URINE NEGATIVE (NEGATIVE); PH,URINE 6.5 PH (5.0-7.5); PROTEIN,URINE NEGATIVE (NEGATIVE); UROBILINOGEN,URINE 0.2 (NORMAL) E.U./dL (NORMAL)
[2019-02-09 22:57] LABS: CLARITY,URINE CLEAR (CLEAR)
--- NOTE | 2019-02-09 23:17 | ED Physician Documentation ---
History of Present Illness - Stated complaint Stated Complaint: CRAMPS/SHAKING - Chief complaint Chief Complaint: General - History obtained from History obtained from: Patient - History of Present Illness Timing: How many hours ago (2) - Additonal information Additional information: The patient is a 63-year-old male who arrives via ambulance complaining of unc ontrollable shaking. His symptoms started about 2 hours prior to arrival. He has had similar tremors in the past, since childhood, and usually gets relief with Valium. He has had cough, headache, and nausea. He denies vomiting, dysuria, or sore throat. He was recently diagnosed with urinary tract infection about 10 days ago, and has completed a course of antibiotics. Further past medical history is significant for asthma and for insulin-dependent diabetes. Review of Systems Constitutional: reports: Chills, Other (course tremors) Ears: denies: Tinnitus/ringing Nose: denies: Congestion Throat: denies: Sore throat Cardiac: denies: Chest pain / pressure Respiratory: reports: Cough. denies: Dyspnea GI: reports: Nausea. denies: Abdominal Pain, Vomiting, Diarrhea : denies: Dysuria Skin: denies: Rash Musculoskeletal: reports: Back pain (chronically) Neurologic: reports: Headache. denies: Focal weakness, Numbness PD PAST MEDICAL HISTORY - Past Medical History Cardiovascular: Hypertension, High cholesterol Respiratory: Asthma, COPD Endocrine/Autoimmune: Type 2 diabetes GI: None : None HEENT: None, Other Psych: None Musculoskeletal: Osteoarthritis, Chronic back pain, Other Derm: Psoriasis, Other - Past Surgical History Past Surgical History: Yes Ortho: Hip replacement, Other - Present Medications Home Medications: Ambulatory Orders Medication Instructions Recorded Confirmed Albuterol Sulf [Ventolin Hfa 1 PRN 04/02/17 Inhaler] Aspirin [Aspirin EC] 1 DAILY 04/02/17 Canagliflozin [Invokana] 1 DAILY 04/02/17 Dicyclomine [Bentyl] 3 BID 04/02/17 Gabapentin [Neurontin] 1 TID 04/02/17 Glipizide [Glipizide ER] 1 BID 04/02/17 Losartan [Cozaar] 0.5 DAILY 04/02/17 Modafinil [Provigil] 1 DAILY 04/02/17 Montelukast [Singulair] 1 DAILY 04/02/17 Omeprazole 1 BID 04/02/17 Prednicarbate [Dermatop] 1 BID 04/02/17 Simvastatin [Zocor] 1 DAILY 04/02/17 traZODone [Desyrel] 1 DAILY PM 04/02/17 Clindamycin [Cleocin] 300 mg PO Q6H #28 capsule 05/24/17 Nystatin Cream [Mycostatin Cream] 1 applic TOP BID #1 tube 05/24/17 Dicyclomine [Bentyl] 10 mg PO QID #14 capsule 11/20/17 Ondansetron Odt [Zofran] 4 mg TL Q6H PRN #14 tablet 11/20/17 - Allergies Allergies/Adverse Reactions: Allergies Allergy/AdvReac Type Severity Reaction Status Date / Time acetaminophen [From Vicodin] AdvReac Itching Verified 02/09/19 22:18 fluticasone [From Flonase] AdvReac Itching Verified 02/09/19 22:18 hydrocodone bitartrate * AdvReac Itching Verified 02/09/19 22:18 [From Vicodin] - Social History Does the pt smoke?: No Smoking Status: Never smoker Does the pt drink ETOH?: No Does the pt have substance abuse?: No - Immunizations Immunizations are current?: Yes PD ED PE NORMAL - Vitals Vital signs reviewed: Yes (Low-grade fever.) - General General: Alert and oriented X 3, Well developed/nourished - HEENT HEENT: Atraumatic, EOMI, Ears normal, Pharynx benign - Neck Neck: Supple, no meningeal sign, No adenopathy - Cardiac Cardiac: RRR - Respiratory Respiratory: No respiratory distress, Clear bilaterally - Abdomen Abdomen: Soft, Non tender - Back Back: No CVA TTP - Derm Derm: No rash - Extremities Extremities: No edema, No calf tenderness / cord - Neuro Neuro: Alert and oriented X 3, No motor deficit, No sensory deficit Results - Vitals Vitals: Oxygen O2 Source Room air - Labs Labs: Laboratory Tests 02/09/19 02/09/19 02/09/19 22:30 22:30 22:50 WBC 6.2 RBC 4.82 Hgb 14.2 Hct 42.5 MCV 88.1 MCH 29.4 MCHC 33.4 RDW 14.2 Plt Count 129 L MPV 9.2 Neut # (Auto) 5.6 Lymph # (Auto) 0.3 L [place] # (Auto) 0.3 Eos # (Auto) 0.0 Baso # (Auto) 0.0 Absolute Nucleated RBC 0.00 Nucleated RBC % 0.0 Sodium 137 Potassium 3.8 Chloride 104 Carbon Dioxide 24 Anion Gap 9.0 BUN 12 Creatinine 1.0 Estimated GFR (MDRD) 76 L Glucose 145 H Calcium 8.6 Total Bilirubin 0.6 AST 32 ALT 20 Alkaline Phosphatase 106 Total Protein 6.7 Albumin 3.9 Globulin 2.8 Albumin/Globulin Ratio 1.4 Lipase 46 Urine Color YELLOW Urine Clarity CLEAR Urine pH 6.5 Ur Specific [place] 1.015 Urine Protein NEGATIVE Urine Glucose (UA) NEGATIVE Urine Ketones NEGATIVE Urine Occult Blood NEGATIVE Urine Nitrite NEGATIVE Urine Bilirubin NEGATIVE Urine Urobilinogen 0.2 (NORMAL) Ur Leukocyte Esterase NEGATIVE Ur Microscopic Review NOT INDICATED Urine Culture Comments NOT INDICATED PD MEDICAL DECISION MAKING - ED course Complexity details: reviewed old records, reviewed results, re-evaluated patient, considered differential, d/w patient, d/w family ED course: The patient's presentation is most consistent with viral syndrome, presenting with tremors associated with onset of fever. He does not appear septic, and has a normal white cell count of 6.2. Urinalysis is negative. His presentation does not suggest pneumonia. Treatment in the emergency department included administration of ibuprofen 800 mg orally, normal saline 1 L IV, and lorazepam 0.5 mg IV. His tremors completely resolved, and he felt subjectively improved after the above treatment. I discussed with him and his family symptomatic treatment and outpatient follow-up, as well as potentially worrisome signs or symptoms that should prompt reevaluation in the emergency department. Departure - Departure Disposition: 01 Home, Self Care Clinical Impression: Coarse tremors, Viral syndrome Condition: Stable Instructions: ED Viral Syndrome Follow-Up: Radha Ann PA-C [Primary Care Provider] - Comments: Drink plenty of fluids. You can use Tylenol or ibuprofen as needed for fever or discomfort. Follow-up with your primary physician as planned. Return to the emergency department if you develop recurrent shaking chills, or otherwise worsening symptoms. Discharge Date/Time: 02/09/19 23:37
[2019-02-09 23:27] VITALS: BP 130/72
== END 2019-02-09 23:37 | disposition home or self-care (01) ==
LOC: EDUNIT# → ED 22:04
DX: G25.2 Other specified forms of tremor (principal); B34.9 Viral infection, unspecified; I10 Essential (primary) hypertension; E78.00 Pure hypercholesterolemia, unspecified; E11.9 Type 2 diabetes mellitus without complications; Z79.82 Long term (current) use of aspirin; Z96.649 Presence of unspecified artificial hip joint
CPT/HCPCS: 36415; 80053; 81003; 83690; 85025; 96361; 96374; 99283; A9270; J2060; 81001; 87086

== ENCOUNTER 2019-04-09 08:21 | Outpatient (CLI) | payer MEDICARE ==
--- NOTE | 2019-04-09 11:05 | Ultrasound Report ---
Reason: THROMBOCYTOPENIA Procedure Date: 04/09/2019 Accession Number: [id number] / [id number] Procedure: US - Abdomen Complete CPT Code: FULL RESULT: EXAM: ABDOMEN ULTRASOUND EXAM DATE: 04/09/2019 10:32 AM. CLINICAL HISTORY: Thrombocytopenia. COMPARISON: ABDOMEN/PELVIS W/ 11/20/2017 10:14 AM. TECHNIQUE: Real-time scanning was performed with static images obtained. FINDINGS: Liver: Upper normal in size. Normal in echotexture. 18 cm. Main portal vein flow: Hepatopetal. Gallbladder: Normal. No stones, wall thickening, or sonographic Mcneil's sign. Biliary System: Common bile duct measures 4 mm. No intrahepatic or extrahepatic ductal dilatation. Pancreas: Heterogeneously echogenic head and proximal body of pancreas likely indicating fatty infiltration. Poor visualization of the pancreatic tail. Kidneys: Right: 11.1 cm longitudinally. Normal. No contour-deforming mass, stones, or hydronephrosis. Left: 11.7 cm longitudinally. Normal. No contour-deforming mass, stones, or hydronephrosis. Spleen: 13.4 x 6 x 12 cm. Upper normal in size. Normal in echotexture. Aorta and Inferior Vena Cava: Unremarkable. Other: None. IMPRESSION: No specific abnormalities demonstrated. Liver and spleen are upper limits of normal in size. [facility]
== END 2019-04-09 08:22 | disposition home or self-care (01) ==
LOC: DI 08:21
PROVIDERS: ATTEND Internal Medicine
DX: D69.6 Thrombocytopenia, unspecified (principal)
CPT/HCPCS: 76700

== ENCOUNTER 2019-05-05 16:09 | Outpatient (CLI) | payer MEDICARE ==
--- NOTE | 2019-05-05 16:59 | XRAY Report ---
Reason: BILATERAL WRIST PAIN Procedure Date: 05/05/2019 Accession Number: [id number] / [id number] Procedure: XR - Wrist 3 View BILAT CPT Code: FULL RESULT: EXAM: BILATERAL WRIST RADIOGRAPHY EXAM DATE: 05/05/2019 04:15 PM. CLINICAL HISTORY: Bilateral wrist pain from power tool accident COMPARISON: None. TECHNIQUE: 3 views. FINDINGS: Bones: Normal. No fractures or bone lesions. Joints: Normal. No subluxations. Soft Tissues: Normal. No soft tissue swelling. IMPRESSION: Normal wrist radiography. [facility]
== END 2019-05-05 16:10 | disposition home or self-care (01) ==
LOC: DI 16:09
PROVIDERS: ATTEND Physician Assistant Medical
DX: M25.531 Pain in right wrist (principal); M25.532 Pain in left wrist

== ENCOUNTER 2019-05-07 08:46 | Outpatient (CLI) | payer MEDICARE ==
[2019-05-07 12:58] LABS: BASOPHILS % (AUTO) 0.4 %; EOSINOPHILS # (AUTO) 0.1 10^3/uL (0.0-0.7); EOSINOPHILS % (AUTO) 2.3 %; LYMPHOCYTES # (AUTO) 1.4 10^3/uL (1.5-3.5); MEAN CORPUSCULAR HEMOGLOBIN 29.7 pg (27.0-31.0); MEAN CORPUSCULAR HGB CONC 34.2 g/dL (32.0-36.0); MEAN CORPUSCULAR VOLUME 86.7 fL (80.0-94.0); MEAN PLATELET VOLUME 10.5 fL (7.4-11.4); MONOCYTES # (AUTO) 0.5 10^3/uL (0.0-1.0); NEUTROPHILS % (AUTO) 66.3 %; PLT - PLATELET COUNT 87 10^3/uL (130-450); RED BLOOD COUNT 4.73 10^6/uL (4.70-6.10); RED CELL DISTRIBUTION WIDTH 15.6 % (12.0-15.0); WHITE BLOOD COUNT 6.1 x10^3/uL (4.8-10.8)
== END 2019-05-07 08:47 | disposition home or self-care (01) ==
LOC: LAB.F 08:46
PROVIDERS: ATTEND Physician Assistant Medical
DX: D69.6 Thrombocytopenia, unspecified (principal)
CPT/HCPCS: 36415; 85025

== ENCOUNTER 2019-11-28 11:26 | Outpatient (CLI) | payer MEDICARE ==
--- NOTE | 2019-11-29 11:10 | XRAY Report ---
Reason: HEEL PAIN, RIGHT Procedure Date: 11/28/2019 Accession Number: [id number] / [id number] Procedure: XRS - Foot 3 View RT CPT Code: Final Report FULL RESULT: EXAM: RIGHT FOOT RADIOGRAPHY EXAM DATE: 11/28/2019 11:39 AM. CLINICAL HISTORY: HEEL PAIN, RIGHT. COMPARISON: None. TECHNIQUE: 3 views. FINDINGS: Bones: No acute fracture. Prominent plantar and calcaneal spurs are noted. Joints: Normal. No subluxations. Soft Tissues: Mild soft tissue prominence adjacent to the anterior calcaneal spur is noted. IMPRESSION: 1. No acute fracture. 2. Normal alignment. Plantar and Achilles spurs are noted. 3. Possible mild soft tissue swelling adjacent to the plantar calcaneal spur. Correlate for plantar fascitis symptoms. [facility]
== END 2019-11-28 11:27 | disposition home or self-care (01) ==
LOC: DI.S 11:26
PROVIDERS: ATTEND Family Medicine
DX: M79.671 Pain in right foot (principal); R22.41 Localized swelling, mass and lump, right lower limb

== ENCOUNTER 2020-03-26 10:47 | Outpatient (CLI) | payer MEDICARE ==
[2020-03-26 11:34] LABS: HB2 TOTAL 15.3 g/dL; HEMOGLOBIN A1C 0.79 g/dL; HEMOGLOBIN A1C % 6.9 % (4.6-6.2)
== END 2020-03-26 10:48 | disposition home or self-care (01) ==
LOC: LAB 10:47
PROVIDERS: ATTEND Student in an Organized Health Care Education/Training Program
DX: E11.9 Type 2 diabetes mellitus without complications (principal); Z79.4 Long term (current) use of insulin; E87.1 Hypo-osmolality and hyponatremia
CPT/HCPCS: 36415; 83036; 84295

== ENCOUNTER 2020-06-11 07:33 | Outpatient (CLI) | payer MEDICARE ==
[2020-06-11 07:48] LABS: BASOPHILS % (AUTO) 0.5 %; EOSINOPHILS # (AUTO) 0.2 10^3/uL (0.0-0.7); EOSINOPHILS % (AUTO) 2.7 %; HGB - HEMOGLOBIN 13.7 g/dL (14.0-18.0); LYMPHOCYTES # (AUTO) 1.3 10^3/uL (1.5-3.5); LYMPHOCYTES % (AUTO) 21.3 %; MEAN CORPUSCULAR HEMOGLOBIN 31.6 pg (27.0-31.0); MEAN CORPUSCULAR HGB CONC 34.9 g/dL (32.0-36.0); MEAN CORPUSCULAR VOLUME 90.8 fL (80.0-94.0); MEAN PLATELET VOLUME 11.3 fL (7.4-11.4); MONOCYTES # (AUTO) 0.5 10^3/uL (0.0-1.0); MONOCYTES % (AUTO) 9.1 %; NEUTROPHILS # (AUTO) 3.9 10^3/uL (1.5-6.6); NEUTROPHILS % (AUTO) 66.1 %; PLT - PLATELET COUNT 73 10^3/uL (130-450); RED BLOOD COUNT 4.33 10^6/uL (4.70-6.10); RED CELL DISTRIBUTION WIDTH 13.4 % (12.0-15.0)
== END 2020-06-11 07:34 | disposition home or self-care (01) ==
LOC: LAB 07:33
PROVIDERS: ATTEND Orthopaedic Surgery Orthopaedic Surgery of the Spine
DX: Z01.818 Encounter for other preprocedural examination (principal)
CPT/HCPCS: 36415; 85025; 93005

== ENCOUNTER 2020-06-16 07:00 | Outpatient (CLI) | payer MEDICARE ==
[2020-06-16 15:51] LABS: % IRON SATURATION 21 % (20-50); FERRITIN 188.9 ng/mL (23.9-336.2); IRON 67 ug/dL (45-182); TOTAL IRON BINDING CAPACITY 319 ug/dL (250-450); TRANSFERRIN 228 mg/dL (180-329)
[2020-06-16 16:44] LABS: FOLATE > 49.60 ng/mL (5.90 - >24.8)
== END 2020-06-16 07:01 | disposition home or self-care (01) ==
LOC: LAB.S 07:00
PROVIDERS: ATTEND Physician Assistant
DX: D64.9 Anemia, unspecified (principal)
CPT/HCPCS: 36415; 82607; 82728; 82746; 83540; 84466

== ENCOUNTER 2020-10-25 12:48 | Outpatient (CLI) | payer MEDICARE ==
[2020-10-25 13:13] LABS: CALCIUM 9.3 mg/dL (8.5-10.3)
[2020-10-25 13:15] LABS: BASOPHILS % (AUTO) 0.3 %; EOSINOPHILS # (AUTO) 0.1 10^3/uL (0.0-0.7); EOSINOPHILS % (AUTO) 1.3 %; HGB - HEMOGLOBIN 14.1 g/dL (14.0-18.0); LYMPHOCYTES # (AUTO) 1.1 10^3/uL (1.5-3.5); LYMPHOCYTES % (AUTO) 16.9 %; MEAN CORPUSCULAR HEMOGLOBIN 31.3 pg (27.0-31.0); MEAN CORPUSCULAR HGB CONC 34.1 g/dL (32.0-36.0); MEAN CORPUSCULAR VOLUME 91.8 fL (80.0-94.0); MEAN PLATELET VOLUME 11.3 fL (7.4-11.4); MONOCYTES # (AUTO) 0.5 10^3/uL (0.0-1.0); MONOCYTES % (AUTO) 7.2 %; NEUTROPHILS # (AUTO) 4.6 10^3/uL (1.5-6.6); PLT - PLATELET COUNT 84 10^3/uL (130-450); WHITE BLOOD COUNT 6.3 x10^3/uL (4.8-10.8)
== END 2020-10-25 12:49 | disposition home or self-care (01) ==
LOC: LAB 12:48
PROVIDERS: ATTEND Orthopaedic Surgery
DX: Z01.818 Encounter for other preprocedural examination (principal); Z01.812 Encounter for preprocedural laboratory examination
CPT/HCPCS: 36415; 80048; 85025; 93005

== ENCOUNTER 2020-12-13 08:50 | Outpatient (CLI) | payer MEDICARE ==
--- NOTE | 2020-12-13 09:09 | XRAY Report ---
PROCEDURE: Finger(s) RT INDICATIONS: PAIN IN FINGER OF RIGHT HAND TECHNIQUE: AP hand, 2 views of the right index finger(s) acquired. COMPARISON: None FINDINGS: Bones: No fractures or dislocations. No suspicious bony lesions. Soft tissues: No suspicious soft tissue calcifications. IMPRESSION: Normal right index finger. Reviewed by: Rhys Archibald on 12/13/2020 9:08 AM [facility] Approved by: Rhys Archibald on 12/13/2020 9:08 AM [facility] Station ID: [id number]
== END 2020-12-13 23:59 | disposition home or self-care (01) ==
LOC: DI.S 08:50
PROVIDERS: ATTEND Physician Assistant Medical
DX: M79.644 Pain in right finger(s) (principal)

== ENCOUNTER 2021-08-24 06:26 | Day surgery (SDC) | payer MEDICARE ==
[2021-08-24] MEDS ORDERED: LACTATED RINGERS 1,000 ML IV ONE ×2 (06:34→08:12)
[2021-08-24] MEDS ORDERED: PROPOFOL 200 MG/20 ML VIAL IVP ONE (07:13)
--- NOTE | 2021-08-24 07:17 | ANESTHESIA ---
Pre-Anesthesia VS, & Labs - Diagnosis screening, hx polyps - Procedure colonoscopy w/possible biopsies Vital Signs: Temp Pulse Resp BP Pulse Ox 36.5 C 54 L 16 135/89 H 98 08/24/21 06:35 08/24/21 06:35 08/24/21 06:35 08/24/21 06:35 08/24/21 06:35 Height: 5 ft 8 in Weight (kg): 98 kg Body Mass Index: 32.8 BMI Classification: Obese - NPO Last Fluid Intake: apple juice 0400 - Lab Results Current Lab Results: Laboratory Tests 08/24/21 06:56: POC Whole Bld Glucose 140 H Lab results reviewed: Yes Home Medications and Allergies Albuterol Sulf [Ventolin Hfa Inhaler] 1 puffs ORAL DAILY 04/02/17 Gabapentin [Neurontin] 1 tab ORAL TID 04/02/17 Glipizide [Glipizide ER] 1 - 2 tab ORAL BID 04/02/17 Losartan [Cozaar] 0.5 tab ORAL DAILY 04/02/17 Modafinil [Provigil] 1 tab ORAL BID 04/02/17 Omeprazole 1 tab ORAL BID 04/02/17 Prednicarbate [Dermatop] 1 cm TOP BID 04/02/17 Simvastatin [Zocor] 2 tab ORAL QPM 04/02/17 traZODone [Desyrel] 1 tab ORAL DAILY PM 04/02/17 Cholecalciferol [Vitamin D3] 5,000 unit PO DAILY 06/24/19 Cyanocobalamin (Vitamin B-12) [Vitamin B-12] 1,000 mcg PO DAILY 06/24/19 Diazepam [Valium] 10 mg PO Q8H PRN 06/24/19 Diphenoxylate HCl/Atropine [Diphenoxylate-Atrop 2.5-0.025] 1 each PO DAILY PRN 06/24/19 Ferrous Gluconate [Iron] 65 mg PO DAILY 06/24/19 Folic Acid 1 mg PO DAILY 06/24/19 Insulin NPH Human Isophane [Humulin N Kwikpen] 17 - 19 unit SUBQ BIDWM 06/24/19 Metoclopramide HCl 5 mg PO DAILY PRN 06/24/19 Ofloxacin 5 ml LEFTEAR DAILY 06/24/19 Oxycodone HCl 5 mg PO Q6H PRN 06/24/19 diphenhydrAMINE [Benadryl] 50 mg PO Q4-6H PRN 06/24/19 prednisoLONE [Prednisolone] 15 mg LEFTEAR DAILY 06/24/19 Ciproflox/Dexameth Otic Drops [Ciprodex Otic Drops] 1 drops EACHEYE DAILY 12/31/19 traMADol [Ultram] 50 mg PO DAILY 12/31/19 Allergies/Adverse Reactions: Allergies Allergy/AdvReac Type Severity Reaction Status Date / Time acetaminophen [From Vicodin] AdvReac Itching Verified 06/29/21 09:54 fluticasone [From Flonase] AdvReac Itching Verified 06/29/21 09:54 hydrocodone bitartrate * AdvReac Itching Verified 06/29/21 09:54 [From Vicodin] Anes History & Medical History - Anesthetic History Anesthesia Complications: reports: No previous complications Family history of Anesthesia Complications: Denies Family history of Malignant Hyperthermia: Denies - Medical History Cardiovascular: reports: High cholesterol Pulmonary: reports: Asthma, Sleep apnea, CPAP use Gastrointestinal: reports: GERD, Colon polyps Urinary: reports: None Neuro: reports: None Musculoskeletal: reports: Osteoarthritis, Hemiplegia, Chronic back pain Endocrine/Autoimmune: reports: Type 2 diabetes Blood Disorders: reports: None Skin: reports: Psoriasis Smoking Status: Never smoker - Surgical History Eyes Ears Nose Throat (EENT): reports: Myringotomy (tubes), Other Orthopedic: reports: Hip replacement, Knee replacement, Carpal Tunnel surgery, Spine surgery (cervical fusion, spinal cord stimulator), Other Exam General: Alert, Oriented x3, Cooperative Dental: WNL Mouth Openin Fingerbreadth Neck Mobility: Reduced Mallampati classification: II Thyromental Distance: 4-6 cm Respiratory: Lungs clear, Normal breath sounds, No respiratory distress Cardiovascular: Regular rate Neurological: Normal speech Mental/Cognitive Status: Alert/Oriented X3, Normal for patient Cognitive Status: Within normal limits Plan Anesthesia Type: Total IV Consent for Procedure(s) Verified and Reviewed: Yes Code Status: Attempt Resuscitation ASA classification: 2-Mild systemic disease Is this case an emergency?: No
[2021-08-24] MEDS ORDERED: MIDAZOLAM 2 MG/2 ML VIAL ONE (07:55)
[2021-08-24] MEDS ORDERED: fentaNYL 100 MCG/2 ML VIAL ONE (07:55)
[2021-08-24 08:31] VITALS: BP 128/86
--- NOTE | 2021-08-24 09:56 | ANESTHESIA POST OP EVALUATION ---
Anesthesia Post Eval - Post Anesthesia Eval Vitals: Last Vital Signs Temp 36.2 C L 08/24/21 08:30 Pulse 57 L 08/24/21 08:30 Resp 16 08/24/21 08:30 BP 128/86 H 08/24/21 08:30 Pulse Ox 100 08/24/21 08:30 CV Function Including HR & BP: Stable Pain Control: Satisfactory Nausea & Vomiting: Negative Mental Status: Baseline Respiratory Status: Airway Patent Hydration Status: Satisfactory Anesthesia Complications: None
== END 2021-08-24 06:27 | disposition home or self-care (01) ==
LOC: SDS 06:26
PROVIDERS: ATTEND Surgery
PROC: 0DBK8ZZ Excision of Ascending Colon, Via Natural or Artificial Opening Endoscopic (ICD-10-PCS; principal; 2021-08-24 07:30)
DX: Z12.11 Encounter for screening for malignant neoplasm of colon (principal); D12.2 Benign neoplasm of ascending colon; K57.30 Diverticulosis of large intestine without perforation or abscess without bleeding; K64.8 Other hemorrhoids; E11.9 Type 2 diabetes mellitus without complications; D69.6 Thrombocytopenia, unspecified; I10 Essential (primary) hypertension; E78.5 Hyperlipidemia, unspecified; J45.909 Unspecified asthma, uncomplicated; G47.30 Sleep apnea, unspecified; K21.9 Gastro-esophageal reflux disease without esophagitis; G89.29 Other chronic pain; M54.9 Dorsalgia, unspecified; H91.90 Unspecified hearing loss, unspecified ear; E66.9 Obesity, unspecified; Z68.32 Body mass index [BMI] 32.0-32.9, adult; E78.00 Pure hypercholesterolemia, unspecified; Z79.4 Long term (current) use of insulin; Z79.52 Long term (current) use of systemic steroids; Z79.899 Other long term (current) drug therapy; Z96.649 Presence of unspecified artificial hip joint; Z96.659 Presence of unspecified artificial knee joint; Z98.1 Arthrodesis status; G47.33 Obstructive sleep apnea (adult) (pediatric); J43.9 Emphysema, unspecified; Z80.0 Family history of malignant neoplasm of digestive organs; Z87.891 Personal history of nicotine dependence
CPT/HCPCS: 45385; J7120

== ENCOUNTER 2021-09-26 09:26 | Outpatient (CLI) | payer MEDICARE ==
--- NOTE | 2021-09-26 20:30 | SLEEP CARE CONSULTATION ---
Information from patient questionnaire entered by Koki Vital. I have reviewed and concur with the information entered by Koki Vital. This document represents the service I personally performed and the decisions made by me, Qamar Calvert MD, [facility]. History of Present Illness Service Date and Time: 09/26/2021925 Reason for Visit: New patient, Previously diagnosed sleep apnea (Moderate Obstructive Sleep Apnea, AHI 22.4), sleep apnea on CPAP therapy, Re-establish care Chief Complaint: reports: Insomnia Date of Onset: 10 years Usual bedtime: 2200 Time it takes to fall asleep: 5-10 minutes Snores at night: No Observed to quit breathing while asleep: Yes Sleeps alone due to snoring: No Number of times waking at night: 2-3 Reasons for waking at night: reports: Bathroom, Other (unknown reason) Toss, Turn, or Twitch while sleeping: Yes Recalls having dreams: Yes Usually gets out of bed at: 0500 Feels refreshed in the morning: No Morning headache: No Sleepy or fatigued during the day: Yes Ever fallen asleep while driving: No Takes day naps: No Dreams during day naps: No Prior sleep studies: Yes Year and Where: 03/2018 [facility] Type of Sleep Study: Polysomnography Additional HPI information: I had the pleasure of seeing Mr. Reyez today regarding obstructive sleep apnea- hypopnea. As you know, he is a 65 year old gentleman who was diagnosed with the sleep-disordered breathing here in 2018. The AHI was 22.4 and jorge a oxygen saturation, 84%. He was prescribed a CPAP device set at 8 12 cmH2O. He uses the Respironics DreamStation 2 device every night and all night. The compliance data show usage in 171 out of the past 180 nights, averaging 6.6 hours a night. The residual AHI is 1.5 and average time in large leak per day is 45 seconds. He wears a Respironics Wisp nasal mask. He gets his supplies from [employer]. He finds the treatment beneficial. The patient complains of insomnia where he wakes up during the night and lies awake for an hour. He thinks he gets about 5 hours of sleep a night. The patient tells me that he normally goes to bed around 10 pm, and it takes him approximately 5 10 minutes to fall asleep. He takes a sleep aid. He can recall waking up on the average of 2 - 3 times during the night. Most of the time he wakes up because of pain. In the morning he usually gets up out of the bed around 5 - 7 a.m. not feeling refreshed nor rested. During the day he complains of feeling fatigued but not sleepy. His score on [place] Sleepiness Scale is 2 out of 24. He takes modafinil in the morning to help clear the mind. He usually does not take naps during the day. - Parasomnia Symptoms Ever been unable to move upon waking from sleep: No Walks in sleep: Yes Talks in sleep: No Ever acted out dreams in sleep: No Ever felt weak in the knees when startled or emotional: No Bothered by creepy, crawly, restless sensations in legs: Yes Problems with memory or concentration: No CPAP Compliance Data - Data Reviewed with Patient Average duration of nightly device use: 6 hours 56 minutes Compliance rate %: 92.2 Current pressure setting (cmH2O): 8-12 Average residual AHI: 1.5 Average large leak: 45 seconds Subjective Initial [place] Sleepiness Scale score: 2 (in 2020) Past Medical History Past Medical History: reports: Diabetes, Stroke (01/12/2008), Arthritis, Asthma, GERD, Other (back/neck/ankle/right hip/both hands pain) Social History The patient's occupation is a RE. Patient is and lives in [place]. Have you smoked in the past 12 months: No Cigarettes per day (20/pack): 40 Years of smokin Quit date: 2000 Smoking Pack Years: 60.0 Alcohol use: Yes Alcohol amount and frequency: rarely Caffeine use: Yes Caffeine amount and frequency: 2 a day Family History Family history of sleep disordered breathing: Yes Family Hx Sleep Apnea: Mother: Snoring (sister), Sleep apnea - Treated (brother), Father: Snoring, Sleep apnea - Treated, Other: Snoring, Sleep apnea - Treated Allergies and Home Medications Drug allergies reviewed: Yes Home medication list reviewed: Yes Review of Systems Weight loss over past 5 years: 30 Cardiovascular: denies: high blood pressure, palpitations, chest pain, irregular heart rate or pulse, leg or foot swelling, have to sleep sitting up, other Respiratory: reports: chronic cough (with mask) Gastrointestinal: reports: heartburn Urinary: reports: urgency (sometimes) Neurological: denies: headaches, seizure, head trauma, disorientation, speech dysfunction, gait or balance problems, fainting or unconsciousness, other Ear/Nose/Throat: reports: nasal congestion, sinus problems, injury to nose, wisdom teeth removed Endocrine: reports: sluggishness Musculoskeletal: reports: joint pain, neck pain, back pain, muscle pain or cramping, mobility problems Immunologic: reports: allergies to food or environment (*environment) Physical Exam Vital signs obtained and entered by: To minimize the risk of COVID-19 exposure, detailed exam was not performed. Height: 5 ft 8 in Impression and Plan IMPRESSION: 1. Obstructive Sleep Apnea-Hypopnea Syndrome, as previously d iagnosed. The patient is doing well on the CPAP therapy. The current pressure setting appears effective and comfortable. No adjustment is necessary today. 2. Insomnia, involving sleep maintenance, partly due to back pain that prevents him from lying in bed too long at a time. There is most likely a component of sleep state misperception because he is not sleepy during the day at all ([place] Sleepiness Scale score is only 2). On weekends he does spend excessive time in bed from 10 pm to 7 am. I recommend he gets out of bed no later than 5 am every morning. Plan: 1. Continue with CPAP set at 8 12 cmH2O. 2. Wake up at 5 am every morning. 3. Try to lose weight. 4. Return for follow up in a year or earlier if there is any problem. Follow up with Sleep Care in: 1 year Visit Type: In Office Time Spent with Patient (minutes): 25 Provider Statement: I spent 100% of the Face to Face Visit with the patient with greater than 50% spent counseling the patient and coordination of care.
== END 2021-09-26 09:27 | disposition home or self-care (01) ==
LOC: SC 09:26
PROVIDERS: ATTEND Internal Medicine Pulmonary Disease
DX: G47.33 Obstructive sleep apnea (adult) (pediatric) (principal); G47.09 Other insomnia; M54.9 Dorsalgia, unspecified
CPT/HCPCS: 99202; G0463; 99212

== ENCOUNTER 2022-01-02 07:04 | Outpatient (CLI) | payer MEDICARE ==
[2022-01-02 14:26] LABS: BASOPHILS % (AUTO) 0.5 %; EOSINOPHILS # (AUTO) 0.1 10^3/uL (0.0-0.7); EOSINOPHILS % (AUTO) 1.9 %; HCT - HEMATOCRIT 43.1 % (42.0-52.0); HGB - HEMOGLOBIN 14.7 g/dL (14.0-18.0); LYMPHOCYTES # (AUTO) 1.2 10^3/uL (1.5-3.5); LYMPHOCYTES % (AUTO) 20.8 %; MEAN CORPUSCULAR HEMOGLOBIN 30.5 pg (27.0-31.0); MEAN CORPUSCULAR HGB CONC 34.1 g/dL (32.0-36.0); MEAN CORPUSCULAR VOLUME 89.4 fL (80.0-94.0); MEAN PLATELET VOLUME 12.2 fL (7.4-11.4); MONOCYTES # (AUTO) 0.5 10^3/uL (0.0-1.0); NEUTROPHILS # (AUTO) 3.8 10^3/uL (1.5-6.6); NEUTROPHILS % (AUTO) 67.6 %; PLT - PLATELET COUNT 66 10^3/uL (130-450); RED BLOOD COUNT 4.82 10^6/uL (4.70-6.10); RED CELL DISTRIBUTION WIDTH 13.1 % (12.0-15.0); WHITE BLOOD COUNT 5.7 x10^3/uL (4.8-10.8)
[2022-01-02 15:23] LABS: ALBUMIN/GLOBULIN RATIO 1.5 (1.0-2.2); BILIRUBIN,TOTAL 0.5 mg/dL (0.2-1.0); CALCIUM 8.9 mg/dL (8.5-10.3); TOTAL PROTEIN 6.6 g/dL (6.7-8.2)
[2022-01-02 20:37] LABS: ESTIMATED AVERAGE GLUCOSE 140 mg/dL (70-100); HEMOGLOBIN A1c% 6.5 % (4.27-6.07)
== END 2022-01-02 07:05 | disposition home or self-care (01) ==
LOC: LAB.S 07:04
PROVIDERS: ATTEND Internal Medicine
DX: E11.9 Type 2 diabetes mellitus without complications (principal); Z12.5 Encounter for screening for malignant neoplasm of prostate
CPT/HCPCS: 36415; 80053; 83036; 85025; G0103; 84153

== ENCOUNTER 2022-01-20 09:02 | Outpatient (CLI) | payer MEDICARE ==
[2022-01-20 16:17] LABS: BILIRUBIN,URINE NEGATIVE (NEGATIVE); GLUCOSE, URINE (UA) >=1000 mg/dL (NEGATIVE); KETONES,URINE (UA) NEGATIVE (NEGATIVE); LEUKOCYTE ESTERASE, URINE NEGATIVE (NEGATIVE); NITRITE,URINE NEGATIVE (NEGATIVE); OCCULT BLOOD,URINE NEGATIVE (NEGATIVE); PROTEIN,URINE NEGATIVE (NEGATIVE); UROBILINOGEN,URINE 0.2 (NORMAL) E.U./dL (NORMAL)
[2022-01-20 16:18] LABS: CLARITY,URINE CLEAR (CLEAR)
== END 2022-01-20 09:03 | disposition home or self-care (01) ==
LOC: LAB.S 09:02
PROVIDERS: ATTEND Internal Medicine
DX: I10 Essential (primary) hypertension (principal)
CPT/HCPCS: 81001; 81003

== ENCOUNTER 2022-07-25 08:00 | Outpatient (CLI) | payer MEDICARE ==
--- NOTE | 2022-07-25 10:41 | XRAY Report ---
PROCEDURE: Elbow 3 View RT INDICATIONS: RIGHT ELBOW PAIN TECHNIQUE: 3 views of the elbow were acquired. COMPARISON: None. FINDINGS: Bones: No fractures or dislocations. No suspicious bony lesions. Soft tissues: No posterior elbow joint effusion. No suspicious soft tissue calcifications. IMPRESSION: No fracture identified. Reviewed by: Xander Sherwood MD on 07/25/2022 10:40 AM PDT Approved by: Xander Sherwood MD on 07/25/2022 10:40 AM PDT Station ID: [id number]
--- NOTE | 2022-07-25 10:44 | XRAY Report ---
PROCEDURE: Knee 3 View RT INDICATIONS: RIGHT KNEE PAIN TECHNIQUE: 3 views of the right knee(s) were acquired. COMPARISON: None. FINDINGS: Bones: No fractures or dislocations. No suspicious bony lesions. Soft tissues: No joint effusion. No suspicious soft tissue calcifications. Vascular calcifications. IMPRESSION: No acute osseous abnormality. Reviewed by: Xander Sherwood MD on 07/25/2022 10:42 AM PDT Approved by: Xander Sherwood MD on 07/25/2022 10:42 AM PDT Station ID: [id number]
== END 2022-07-25 23:59 | disposition home or self-care (01) ==
LOC: DI.S 08:00
PROVIDERS: ATTEND Physician Assistant Medical
DX: M25.521 Pain in right elbow (principal); M25.561 Pain in right knee

== ENCOUNTER 2022-08-04 09:18 | Outpatient (CLI) | payer MEDICARE ==
[2022-08-04 15:21] LABS: ALBUMIN 4.1 g/dL (3.2-5.5); ALBUMIN/GLOBULIN RATIO 1.5 (1.0-2.2); ALKALINE PHOSPHATASE 90 IU/L (42-121); ALT ALANINE AMINOTRANSFERASE 19 IU/L (10-60); AST ASPARTATE AMINOTRANSFERASE 30 IU/L (10-42); BILIRUBIN,TOTAL 0.6 mg/dL (0.2-1.0); BUN - BLOOD UREA NITROGEN 14 mg/dL (6-20); CALCIUM 9.1 mg/dL (8.5-10.3); CARBON DIOXIDE - CO2 26 mmol/L (21-32); CHLORIDE 105 mmol/L (101-111); CHOL/HDL RATIO 3.8 (<5.0); CHOLESTEROL 109 mg/dL; GFR - MDRD 75 (>89); GLUCOSE 128 mg/dL (70-100); HDL CHOLESTEROL 29 mg/dL; LDL CHOLESTEROL,CALCULATED 37 mg/dL; LDL/HDL RATIO 1.3 (<3.6); POTASSIUM 4.2 mmol/L (3.5-5.0); SODIUM 136 mmol/L (135-145); TOTAL PROTEIN 6.8 g/dL (6.7-8.2); TRIGLYCERIDES 214 mg/dL; VLDL CHOLESTEROL 43 mg/dL
[2022-08-04 15:31] LABS: THYROID STIMULATING HORMONE 2.23 uIU/mL (0.34-5.60)
[2022-08-04 20:04] LABS: ESTIMATED AVERAGE GLUCOSE 134 mg/dL (70-100); HEMOGLOBIN A1c% 6.3 % (4.27-6.07)
== END 2022-08-04 09:19 | disposition home or self-care (01) ==
LOC: LAB.S 09:18
PROVIDERS: ATTEND Registered Nurse
DX: E11.9 Type 2 diabetes mellitus without complications (principal); E78.5 Hyperlipidemia, unspecified; Z76.0 Encounter for issue of repeat prescription; I10 Essential (primary) hypertension
CPT/HCPCS: 36415; 80053; 80061; 83036; 83721; 84443

== ENCOUNTER 2022-10-05 08:38 | Outpatient (CLI) | payer MEDICARE ==
[2022-10-05 14:33] LABS: ESTIMATED AVERAGE GLUCOSE 140 mg/dL (70-100); HEMOGLOBIN A1c% 6.5 % (4.27-6.07)
[2022-10-05 14:56] LABS: CREATININE,URINE 48.5 mg/dL
[2022-10-05 14:57] LABS: MICROALBUMIN,URINE < 0.2 mg/dL (0-300.0)
== END 2022-10-05 08:39 | disposition home or self-care (01) ==
LOC: LAB.S 08:38
PROVIDERS: ATTEND Registered Nurse
DX: E11.9 Type 2 diabetes mellitus without complications (principal)
CPT/HCPCS: 36415; 82043; 82570; 83036

== ENCOUNTER 2023-05-18 17:57 | Emergency (ER) | payer MEDICARE ==
[2023-05-18] MEDS ORDERED: HYDROmorphone 1 MG/ML CARPUJECT IVP STA ×2 (18:16→19:58)
--- NOTE | 2023-05-18 18:18 | ED Physician Documentation ---
PD HPI ABD PAIN - Stated complaint Stated Complaint: ABD PX, DIARRHEA - Chief complaint Chief Complaint: Abd Pain - History obtained from History obtained from: Patient - Additional information Additional information: 67-year-old gentleman with type 2 diabetes on insulin, chronic back pain with a spinal stimulator in place, and pancytopenia being monitored by heme-onc presents with a week of stabbing upper abdominal pain associated with watery loose stools. There is no blood in the stool. No fevers. No nausea. No sick contacts, recent travel, recent antibiotic use, or recent camping. PD PAST MEDICAL HISTORY - Past Medical History Cardiovascular: High cholesterol Respiratory: Asthma, Sleep apnea, CPAP use Neuro: None Endocrine/Autoimmune: Type 2 diabetes GI: GERD, Colon polyps : None HEENT: Chronic vision loss, Chronic hearing loss Psych: None Musculoskeletal: Osteoarthritis, Hemiplegia, Chronic back pain Derm: Psoriasis - Past Surgical History Past Surgical History: Yes Ortho: Hip replacement, Knee replacement, Carpal Tunnel surgery, Spine surgery (cervical fusion, spinal cord stimulator), Other HEENT: Myringotomy (tubes), Other - Present Medications Home Medications: Ambulatory Orders Medication Instructions Recorded Confirmed Albuterol Sulf [Ventolin Hfa 1 puffs ORAL DAILY 04/02/17 05/18/23 Inhaler] Gabapentin [Neurontin] 1 tab ORAL TID 04/02/17 05/18/23 Glipizide [Glipizide ER] 1 - 2 tab ORAL BID 04/02/17 05/18/23 Losartan [Cozaar] 25 tab ORAL DAILY 04/02/17 05/18/23 Modafinil [Provigil] 1 tab ORAL BID 04/02/17 05/18/23 Omeprazole 1 tab ORAL BID 04/02/17 05/18/23 Simvastatin [Zocor] 2 tab ORAL QPM 04/02/17 05/18/23 traZODone [Desyrel] 1 tab ORAL DAILY PM 04/02/17 05/18/23 Cholecalciferol [Vitamin D3] 5,000 unit PO DAILY 06/24/19 04/06/22 Cyanocobalamin (Vitamin B-12) 1,000 mcg PO DAILY 06/24/19 04/06/22 [Vitamin B-12] Diphenoxylate HCl/Atropine 1 each PO DAILY PRN 06/24/19 04/06/22 [Diphenoxylate-Atrop 2.5-0.025] Ferrous Gluconate [Iron] 65 mg PO DAILY 06/24/19 04/06/22 Folic Acid 1 mg PO DAILY 06/24/19 04/06/22 Insulin NPH Human Isophane 15 unit SUBQ BIDWM 06/24/19 05/18/23 [Humulin N Kwikpen] Metoclopramide HCl 5 mg PO DAILY PRN 06/24/19 05/18/23 Ofloxacin 5 ml LEFTEAR DAILY 06/24/19 04/06/22 Ciproflox/Dexameth Otic Drops 4 drops EACHEYE BID 12/31/19 04/06/22 [Ciprodex Otic Drops] Aspirin [Vazalore] 81 mg PO DAILY 04/06/22 05/18/23 Calcipotriene 60 ml TP BID 04/06/22 04/06/22 Calcipotriene [Dovonex] 60 gm TP BID 04/06/22 04/06/22 Cyclobenzaprine [Flexeril] 10 mg PO TID PRN 04/06/22 04/06/22 Montelukast [Singulair] 10 mg PO QPM 04/06/22 05/18/23 Morphine Sulfate [Morphine Sulfate 15 mg PO 04/06/22 2mg/ml soln] Ondansetron Odt [Zofran Odt] 4 mg TL Q6H PRN 04/06/22 04/06/22 Ciprofloxacin HCl [Cipro] 500 mg PO BID #14 tablet 05/18/23 metroNIDAZOLE [Flagyl] 500 mg PO TID 7 Days #21 tablet 05/18/23 oxyCODONE [Roxicodone] 5 mg PO Q4-6H PRN #15 tablet 05/18/23 - Allergies Allergies/Adverse Reactions: Allergies Allergy/AdvReac Type Severity Reaction Status Date / Time acetaminophen [From Vicodin] AdvReac Itching Verified 06/29/21 09:54 fluticasone [From Flonase] AdvReac Itching Verified 06/29/21 09:54 hydrocodone bitartrate * AdvReac Itching Verified 06/29/21 09:54 [From Vicodin] - Social History Does the pt smoke?: No Smoking Status: Never smoker Does the pt drink ETOH?: No Does the pt have substance abuse?: No - Immunizations Immunizations are current?: Yes PD ED PE NORMAL - Vitals Vital signs reviewed: Yes - General General: Alert and oriented X 3, No acute distress - Cardiac Cardiac: RRR, No murmur - Respiratory Respiratory: No respiratory distress - Abdomen Abdomen: Normal bowel sounds, Soft, Other (He has a ventral hernia and is tender in the upper abdomen. Not specifically the hernia though.) - Back Back: No CVA TTP, No spinal TTP - Derm Derm: Normal color, Warm and dry - Extremities Extremities: No edema, No calf tenderness / cord - Neuro Neuro: Alert and oriented X 3, Normal speech Results - Vitals Vitals: Vital Signs - 24 hr 05/18/23 18:04 Temperature 36.7 C Heart Rate 89 Respiratory 18 Rate Blood Pressure 152/88 H O2 Saturation 98 Oxygen O2 Source Room air - Labs Labs: Laboratory Tests 05/18/23 05/18/23 05/18/23 18:08 18:22 18:22 WBC 7.7 RBC 5.52 Hgb 16.4 Hct 47.9 MCV 86.8 MCH 29.7 MCHC 34.2 RDW 13.3 Plt Count 100 L MPV 10.9 Neut # (Auto) 5.7 Lymph # (Auto) 1.1 L [place] # (Auto) 0.7 Eos # (Auto) 0.1 Baso # (Auto) 0.0 Absolute Nucleated RBC 0.00 Nucleated RBC % 0.0 Sodium 137 Potassium 3.7 Chloride 103 Carbon Dioxide 24 Anion Gap 10.0 BUN 10 Creatinine 0.9 Estimated GFR (MDRD) 85 L Glucose 155 H POC Whole Bld Glucose 144 H Calcium 10.0 Total Bilirubin 1.2 H AST 28 ALT 18 Alkaline Phosphatase 110 Total Protein 8.6 H Albumin 4.6 Globulin 4.0 Albumin/Globulin Ratio 1.1 Lipase 42 - Rads (name of study) CT abdomen pelvis showing colitis and liquid stool in the colon Relevant Findings:: Final report received, EMP independent interpretation of test PD Medical Decision Making - ED course ED course: 67-year-old gentleman with history of diabetes presents with abdominal pain and diarrhea. CBC and CMP are grossly normal save modest hyperglycemia. CT showing colitis. The syndrome is consistent with a bacterial colitis and is treated with Cipro and Flagyl here. Departure - Departure Disposition: 01 Home, Self Care Clinical Impression: Colitis Condition: Good Record reviewed to determine appropriate education?: Yes Instructions: ED Diarrhea Bacterial Prescriptions: Ciprofloxacin HCl [Cipro] 500 mg PO BID #14 tablet metroNIDAZOLE [Flagyl] 500 mg PO TID 7 Days #21 tablet oxyCODONE [Roxicodone] 5 mg PO Q4-6H PRN #15 tablet PRN Reason: Pain Comments: You were seen today for colitis. This is generally related to an infection. A stool culture and some other stool studies are pending. We will call you if they show something that would require change in antibiotics. Otherwise I sent the antibiotics as well as the prescription for some extra [facility] in [place]. Call your doctor to arrange a follow-up appointment, make the next available appointment. In the interim, return anytime if worse or if new symptoms develop. I am prescribing a short course of narcotic pain medication for you. These are potentially dangerous and addictive medications that should be used carefully. These medications may constipate you. Take an [id number] stool softener (docusate) twice daily with plenty of water while taking these medications. If you go 24 hours without a bowel movement, take orux-wtf-usmrazs miralax, per package instructions. Do not drink or drive while taking these medications. If you received narcotic or sedating medications while in the emergency department, do not drive for 24 hours. Store this medication in a safe, secure place and out of reach of children. It is a violation of federal law to give or sell this medication to another person or to use in a manner other than prescribed. The ED will not refill narcotic prescriptions, including prescriptions lost or stolen. To dispose of unwanted medications: 1. [facility] provides a drop box for medication in pill form only (no liquids) 8:00 am to 4:30 p.m. Sunday-Sunday in the lobby of the [facility] [place], [address] [place] [address]. Empty pills into ziplock bag before disposal. Call [phone] for information. 2.[employer] is a free service available to all [facility] residents. Go to [email or web address] Note that many narcotic pain relievers also contain Tylenol/acetaminophen. Please ensure that your total dose of acetaminophen from all sources does not exceed 3 g (3000 mg) per day.
[2023-05-18 18:32] LABS: BASOPHILS % (AUTO) 0.3 %; EOSINOPHILS # (AUTO) 0.1 10^3/uL (0.0-0.7); EOSINOPHILS % (AUTO) 1.3 %; HCT - HEMATOCRIT 47.9 % (42.0-52.0); HGB - HEMOGLOBIN 16.4 g/dL (14.0-18.0); LYMPHOCYTES # (AUTO) 1.1 10^3/uL (1.5-3.5); LYMPHOCYTES % (AUTO) 14.3 %; MEAN CORPUSCULAR HEMOGLOBIN 29.7 pg (27.0-31.0); MEAN CORPUSCULAR HGB CONC 34.2 g/dL (32.0-36.0); MEAN CORPUSCULAR VOLUME 86.8 fL (80.0-94.0); MEAN PLATELET VOLUME 10.9 fL (7.4-11.4); MONOCYTES # (AUTO) 0.7 10^3/uL (0.0-1.0); MONOCYTES % (AUTO) 9.3 %; NEUTROPHILS # (AUTO) 5.7 10^3/uL (1.5-6.6); NEUTROPHILS % (AUTO) 74.5 %; PLT - PLATELET COUNT 100 10^3/uL (130-450); RED BLOOD COUNT 5.52 10^6/uL (4.70-6.10); RED CELL DISTRIBUTION WIDTH 13.3 % (12.0-15.0); WHITE BLOOD COUNT 7.7 x10^3/uL (4.8-10.8)
[2023-05-18 18:42] LABS: ALBUMIN 4.6 g/dL (3.2-5.5); ALBUMIN/GLOBULIN RATIO 1.1 (1.0-2.2); BILIRUBIN,TOTAL 1.2 mg/dL (0.2-1.0); CREATININE 0.9 mg/dL (0.6-1.2); POTASSIUM 3.7 mmol/L (3.5-5.0); TOTAL PROTEIN 8.6 g/dL (6.7-8.2)
[2023-05-18] MEDS ORDERED: iohexoL-300 100 ML VIAL ONE (18:42)
[2023-05-18] MEDS ORDERED: iohexoL-300 100 ML VIAL IVP ONE (19:00)
[2023-05-18] MEDS ORDERED: KETOROLAC 15 MG/ML VIAL IVP STA (19:58)
--- NOTE | 2023-05-18 20:02 | CT Report ---
PROCEDURE: ABDOMEN/PELVIS W INDICATIONS: upper abd pain CONTRAST: 100ml omni 300 TECHNIQUE: After the administration of IV contrast, 5 mm thick sections acquired from the diaphragms to the symp hysis. 5 mm thick coronal and sagittal reformats were acquired. For radiation dose reduction, the f ollowing was used: automated exposure control, adjustment of mA and/or kV according to patient size. COMPARISON: 11/20/2017 FINDINGS: Image quality: There is artifact associated with the metallic hardware. Lung bases and heart: Unremarkable. Liver: No solid mass. Diffuse Gallbladder and biliary tree: Within normal limits. Spleen: The spleen is enlarged, measuring nearly 16 cm AP. Pancreas: No pancreatic ductal dilation. Adrenals: No adrenal nodule. Kidneys and ureters: No hydronephrosis. No renal cystic lesion which requires follow up. No solid mas s. Bowel and peritoneum: No dilated loops of small bowel are seen. The colon demonstrates generalized mi ld wall thickening and hyperenhancement, with mild surrounding inflammatory change. Liquid stool can be seen throughout the colon, including distally. Lymph nodes: No central or retroperitoneal adenopathy. Vessels: No infrarenal aortic aneurysm. PELVIS Reproductive organs: Unremarkable. Bladder: No abnormal wall thickening, accounting for underdistension. Pelvic lymph nodes: No pelvic adenopathy by size criteria. Bones: No aggressive osseous abnormality. Age-appropriate degenerative changes are seen. Other: No significant ventral or inguinal hernia. A thoracic spine stimulator is partially seen. IMPRESSION: Generalized colitis, with mild wall thickening of the colon, with hyperenhancement and mild surroundi ng inflammatory change. There is liquid stool seen throughout the colon, including within the rectum. Please correlate with clinical diarrhea. Additional findings: Thoracic spine stimulator Fatty liver infiltration Splenomegaly Reviewed by: Curtis Lopez MD on 05/18/2023 7:00 PM ISABELLE Approved by: Curtis Lopez MD on 05/18/2023 7:00 PM AKCHRIS Station ID: [id number]
[2023-05-18] MEDS ORDERED: SODIUM CHLORIDE 0.9% 1,000 ML IV STA (20:15)
[2023-05-18] MEDS ORDERED: CIPROFLOXACIN 250 MG TABLET PO STA (20:15)
[2023-05-18] MEDS ORDERED: metroNIDAZOLE 250 MG TABLET PO STA (20:15)
[2023-05-18 21:40] VITALS: BP 158/81
== END 2023-05-18 21:43 | disposition home or self-care (01) ==
LOC: ED 17:57
DX: K52.9 Noninfective gastroenteritis and colitis, unspecified (principal); E11.9 Type 2 diabetes mellitus without complications; Z79.4 Long term (current) use of insulin; G89.29 Other chronic pain; Z96.82 Presence of neurostimulator
CPT/HCPCS: 36415; 74177; 80053; 83690; 85025; 87045; 87046; 87177; 87427; 87493; 96374; 96376; 99284; A9270; J1170; Q9967

== ENCOUNTER 2023-05-21 20:18 | Emergency (ER) | payer MEDICARE ==
[2023-05-21 20:37] VITALS: BP 110/53
[2023-05-21] MEDS ORDERED: DEXAMETHASONE 10 MG/ML VIAL PO STA (20:49)
[2023-05-21] MEDS ORDERED: CHERRY SYRUP 10 ML UDC PO ONE (20:49)
--- NOTE | 2023-05-21 20:51 | ED Physician Documentation ---
History of Present Illness - Stated complaint Stated Complaint: ALLERGIC REACTION - Chief complaint Chief Complaint: Allergic Rx - History obtained from History obtained from: Patient - Additonal information Additional information: 67 years old gentleman was seen 2 days ago by me for colitis. Cultures to date are negative. He has been on Cipro and Flagyl. Suddenly tonight around 6:00 after eating dinner consisting of hamburgers and artichokes he felt like there was swelling in his throat and dry mouth. PD PAST MEDICAL HISTORY - Past Medical History Cardiovascular: High cholesterol Respiratory: Asthma, Sleep apnea, CPAP use Neuro: None Endocrine/Autoimmune: Type 2 diabetes GI: GERD, Colon polyps : None HEENT: Chronic vision loss, Chronic hearing loss Psych: None Musculoskeletal: Osteoarthritis, Hemiplegia, Chronic back pain Derm: Psoriasis - Past Surgical History Past Surgical History: Yes Ortho: Hip replacement, Knee replacement, Carpal Tunnel surgery, Spine surgery (cervical fusion, spinal cord stimulator), Other HEENT: Myringotomy (tubes), Other - Present Medications Home Medications: Ambulatory Orders Medication Instructions Recorded Confirmed Albuterol Sulf [Ventolin Hfa 1 puffs ORAL DAILY 04/02/17 05/18/23 Inhaler] Gabapentin [Neurontin] 1 tab ORAL TID 04/02/17 05/18/23 Glipizide [Glipizide ER] 1 - 2 tab ORAL BID 04/02/17 05/18/23 Losartan [Cozaar] 25 tab ORAL DAILY 04/02/17 05/18/23 Modafinil [Provigil] 1 tab ORAL BID 04/02/17 05/18/23 Omeprazole 1 tab ORAL BID 04/02/17 05/18/23 Simvastatin [Zocor] 2 tab ORAL QPM 04/02/17 05/18/23 traZODone [Desyrel] 1 tab ORAL DAILY PM 04/02/17 05/18/23 Cholecalciferol [Vitamin D3] 5,000 unit PO DAILY 06/24/19 04/06/22 Cyanocobalamin (Vitamin B-12) 1,000 mcg PO DAILY 06/24/19 04/06/22 [Vitamin B-12] Diphenoxylate HCl/Atropine 1 each PO DAILY PRN 06/24/19 04/06/22 [Diphenoxylate-Atrop 2.5-0.025] Ferrous Gluconate [Iron] 65 mg PO DAILY 06/24/19 04/06/22 Folic Acid 1 mg PO DAILY 06/24/19 04/06/22 Insulin NPH Human Isophane 15 unit SUBQ BIDWM 06/24/19 05/18/23 [Humulin N Kwikpen] Metoclopramide HCl 5 mg PO DAILY PRN 06/24/19 05/18/23 Ofloxacin 5 ml LEFTEAR DAILY 06/24/19 04/06/22 Ciproflox/Dexameth Otic Drops 4 drops EACHEYE BID 12/31/19 04/06/22 [Ciprodex Otic Drops] Aspirin [Vazalore] 81 mg PO DAILY 04/06/22 05/18/23 Calcipotriene 60 ml TP BID 04/06/22 04/06/22 Calcipotriene [Dovonex] 60 gm TP BID 04/06/22 04/06/22 Cyclobenzaprine [Flexeril] 10 mg PO TID PRN 04/06/22 04/06/22 Montelukast [Singulair] 10 mg PO QPM 04/06/22 05/18/23 Morphine Sulfate [Morphine Sulfate 15 mg PO 04/06/22 2mg/ml soln] Ondansetron Odt [Zofran Odt] 4 mg TL Q6H PRN 04/06/22 04/06/22 Ciprofloxacin HCl [Cipro] 500 mg PO BID #14 tablet 05/18/23 metroNIDAZOLE [Flagyl] 500 mg PO TID 7 Days #21 tablet 05/18/23 oxyCODONE [Roxicodone] 5 mg PO Q4-6H PRN #15 tablet 05/18/23 predniSONE [Deltasone] 60 mg PO DAILY 5 Days #15 tablet 05/21/23 - Allergies Allergies/Adverse Reactions: Allergies Allergy/AdvReac Type Severity Reaction Status Date / Time acetaminophen [From Vicodin] AdvReac Itching Verified 06/29/21 09:54 fluticasone [From Flonase] AdvReac Itching Verified 06/29/21 09:54 hydrocodone bitartrate * AdvReac Itching Verified 06/29/21 09:54 [From Vicodin] - Social History Does the pt smoke?: No Smoking Status: Never smoker Does the pt drink ETOH?: No Does the pt have substance abuse?: No - Immunizations Immunizations are current?: Yes PD ED PE NORMAL - Vitals Vital signs reviewed: Yes - General General: Alert and oriented X 3, No acute distress - HEENT HEENT: Other (Phonation and visualized portions of the oropharynx are normal) - Neck Neck: Supple, no meningeal sign, No bony TTP - Cardiac Cardiac: RRR, No murmur - Respiratory Respiratory: No respiratory distress, Clear bilaterally - Abdomen Abdomen: Non tender - Derm Derm: No rash - Neuro Neuro: Alert and oriented X 3, Normal speech Results - Vitals Vitals: Vital Signs - 24 hr 05/21/23 20:33 Temperature 36.4 C L Heart Rate 112 H Respiratory 16 Rate Blood Pressure 110/53 L O2 Saturation 100 Oxygen O2 Source Room air - EKG (time done) 2051 EKG releavant findings:: EKG personally interpreted by author of this note. Relevant findings are: Rate: Rate (enter#) (51) Rhythm: NSR Sherrill: Normal Intervals: Normal CT QRS: Normal Ischemia: Normal ST segments PD Medical Decision Making - ED course ED course: 67-year-old gentleman presents with throat tightness in the setting of being on antibiotics for few days for colitis. His cultures are so far negative and from the colitis/diarrhea perspective he is improving significantly. His exam is normal. An EKG was done for the concern for possible occult ACS and is normal/nonischemic. We will treat with steroids and he can discontinue the antibiotics. Departure - Departure Disposition: 01 Home, Self Care Clinical Impression: Throat tightness Condition: Good Record reviewed to determine appropriate education?: Yes Instructions: ED Allergic Reaction General Other Prescriptions: predniSONE [Deltasone] 60 mg PO DAILY 5 Days #15 tablet Comments: Your exam is normal. Given your symptoms we did do an EKG just to make sure it was not a really weird heart attack, the EKG looks fine. I think you can stop the antibiotics and we will put you on some steroids which should be helpful. Return if worse.
== END 2023-05-21 21:05 | disposition home or self-care (01) ==
LOC: ED 20:18
DX: J39.2 Other diseases of pharynx (principal); E11.9 Type 2 diabetes mellitus without complications; E78.00 Pure hypercholesterolemia, unspecified; Z79.899 Other long term (current) drug therapy; Z79.84 Long term (current) use of oral hypoglycemic drugs; Z79.4 Long term (current) use of insulin; Z79.82 Long term (current) use of aspirin
CPT/HCPCS: 93005; 99283; 99284; A9270

== ENCOUNTER 2023-12-20 06:48 | Outpatient (CLI) | payer MEDICARE ==
[2023-12-20 07:27] LABS: ALBUMIN/GLOBULIN RATIO 1.5 (1.0-2.2); ALKALINE PHOSPHATASE 92 IU/L (42-121); ALT ALANINE AMINOTRANSFERASE 11 IU/L (10-60); AST ASPARTATE AMINOTRANSFERASE 19 IU/L (10-42); BILIRUBIN,TOTAL 0.5 mg/dL (0.2-1.0); BUN - BLOOD UREA NITROGEN 8 mg/dL (6-20); CALCIUM 9.1 mg/dL (8.5-10.3); CARBON DIOXIDE - CO2 28 mmol/L (21-32); CHLORIDE 104 mmol/L (101-111); CHOL/HDL RATIO 5.4 (<5.0); CHOLESTEROL 130 mg/dL; CREATININE,URINE 82.6 mg/dL; GFR - MDRD 75 (>89); GLUCOSE 140 mg/dL (74-104); HDL CHOLESTEROL 24 mg/dL; SODIUM 138 mmol/L (135-145); TOTAL PROTEIN 6.7 g/dL (6.4-8.9); TRIGLYCERIDES 523 mg/dL (48-352)
[2023-12-20 07:28] LABS: MICROALBUMIN,URINE < 0.7 mg/dL
[2023-12-20 07:38] LABS: LDL CHOLESTEROL,DIRECT 40 mg/dL (75-193); LDLD/HDL RATIO 1.7 (<3.6)
[2023-12-20 07:42] LABS: THYROID STIMULATING HORMONE 3.87 uIU/mL (0.34-5.60)
[2023-12-20 09:10] LABS: ESTIMATED AVERAGE GLUCOSE 128 mg/dL (70-100); HEMOGLOBIN A1c% 6.1 % (4.27-6.07)
== END 2023-12-20 06:49 | disposition home or self-care (01) ==
LOC: LAB 06:48
PROVIDERS: ATTEND Registered Nurse
DX: E11.9 Type 2 diabetes mellitus without complications (principal); Z13.228 Encounter for screening for other metabolic disorders; Z13.220 Encounter for screening for lipoid disorders; Z13.29 Encounter for screening for other suspected endocrine disorder
CPT/HCPCS: 36415; 80053; 80061; 82043; 82570; 83036; 83721; 84443

== ENCOUNTER 2024-04-22 08:00 | Outpatient (CLI) | payer MEDICARE ==
[2024-04-22 20:18] LABS: BILIRUBIN,URINE NEGATIVE (NEGATIVE); GLUCOSE, URINE (UA) >=1000 mg/dL (NEGATIVE); KETONES,URINE (UA) NEGATIVE (NEGATIVE); LEUKOCYTE ESTERASE, URINE NEGATIVE (NEGATIVE); NITRITE,URINE NEGATIVE (NEGATIVE); OCCULT BLOOD,URINE LARGE (NEGATIVE); PH,URINE 6.5 PH (5.0-7.5); PROTEIN,URINE NEGATIVE (NEGATIVE); UROBILINOGEN,URINE 0.2 (NORMAL) E.U./dL (NORMAL)
[2024-04-22 20:29] LABS: BACTERIA,URINE Rare /HPF (None Seen); CLARITY,URINE CLEAR (CLEAR); RBC,URINE TNTC /HPF (0-5); SQUAMOUS EPITHELIAL CELL,UR RARE Squamous (<= Few)
== END 2024-04-22 23:59 | disposition home or self-care (01) ==
LOC: LAB.S 08:00
PROVIDERS: ATTEND Emergency Medicine
DX: R31.9 Hematuria, unspecified (principal)
CPT/HCPCS: 81001; 87086

== ENCOUNTER 2024-04-23 07:43 | Outpatient (CLI) | payer MEDICARE ==
[2024-04-23 15:18] LABS: BASOPHILS % (AUTO) 0.4 %; EOSINOPHILS # (AUTO) 0.1 10^3/uL (0.0-0.7); EOSINOPHILS % (AUTO) 2.7 %; HCT - HEMATOCRIT 40.2 % (42.0-52.0); HGB - HEMOGLOBIN 12.2 g/dL (14.0-18.0); LYMPHOCYTES # (AUTO) 0.9 10^3/uL (1.5-3.5); LYMPHOCYTES % (AUTO) 35.9 %; MEAN CORPUSCULAR HEMOGLOBIN 29.2 pg (27.0-31.0); MEAN CORPUSCULAR HGB CONC 30.3 g/dL (32.0-36.0); MEAN CORPUSCULAR VOLUME 96.2 fL (80.0-94.0); MEAN PLATELET VOLUME 12.4 fL (7.4-11.4); MONOCYTES # (AUTO) 0.2 10^3/uL (0.0-1.0); MONOCYTES % (AUTO) 6.5 %; NEUTROPHILS # (AUTO) 1.4 10^3/uL (1.5-6.6); NEUTROPHILS % (AUTO) 54.5 %; NRBC ABSOLUTE COUNT (AUTO) 0.02 x10^3/uL; NUCLEATED RED BLOOD CELLS AUTO 0.8 /100WBC; PLT - PLATELET COUNT 53 10^3/uL (130-450); RED BLOOD COUNT 4.18 10^6/uL (4.70-6.10); RED CELL DISTRIBUTION WIDTH 13.9 % (12.0-15.0); WHITE BLOOD COUNT 2.6 x10^3/uL (4.8-10.8)
[2024-04-23 15:25] LABS: SLIDE REVIEW? Indicated
[2024-04-23 15:33] LABS: ALBUMIN 3.9 g/dL (3.2-5.5); ALBUMIN/GLOBULIN RATIO 1.9 (1.0-2.2); BILIRUBIN,TOTAL 0.5 mg/dL (0.2-1.0); CALCIUM 8.7 mg/dL (8.5-10.3)
[2024-04-23 16:17] LABS: INR 1.2 (0.8-1.2); PT - PROTHROMBIN TIME 13.6 secs (9.9-12.6)
[2024-04-23 17:10] LABS: PLATELET ESTIMATE, MANUAL DECREASED (<130,000) (NORMAL); PLATELET MORPHOLOGY NORMAL APPEARANCE (NORMAL); RBC MORPHOLOGY (MULTIPLE) NORMAL APPEARANCE (NORMAL); WBC MORPHOLOGY (MULTIPLE) NORMAL APPEARANCE (NORMAL)
== END 2024-04-23 07:44 | disposition home or self-care (01) ==
LOC: LAB.S 07:43
PROVIDERS: ATTEND Emergency Medicine
DX: R31.9 Hematuria, unspecified (principal); D69.6 Thrombocytopenia, unspecified
CPT/HCPCS: 36415; 80053; 84153; 85025; 85610

== ENCOUNTER 2024-04-29 15:35 | Outpatient (CLI) | payer MEDICARE ==
[2024-04-29] MEDS ORDERED: iohexoL-300 150 ML BOTTLE ONE (15:38)
[2024-04-29] MEDS: iohexoL-300 150 ML BOTTLE IVP ONE (16:43)
--- NOTE | 2024-04-30 10:13 | CT Report ---
PROCEDURE: IVP INDICATIONS: HEMATURIA CONTRAST: Omni 300 140ml TECHNIQUE: A [address] of the abdomen and pelvis was performed. Non-contrast and contrast images were recorded and evaluated at appropriate window settings. Images were recorded and evaluated at appropriate windo w settings. Reformats: coronal and sagittal. For radiation dose reduction, the following was used: au tomated exposure control, adjustment of mA and/or kV according to patient size. COMPARISON: 05/18/2023, 12/20/2023 FINDINGS: Image quality: Decreased due to the right hip arthroplasty components obscuring much of the urinary b ladder.. Lower chest: No pleural effusions. Circumferential distal esophageal wall thickening. No hiatal herni a. Liver: No solid mass. Gallbladder: Mild pericholecystic edema and mucosal hyperemia. No visible calcifications. Biliary tree: No intrahepatic or extrahepatic dilation, accounting for age. Spleen: The spleen is enlarged measuring 18.8 x 17.2 x 7.4 cm, increased compared to the prior CT. Ho mogeneous enhancement. Pancreas: Normal. Adrenals: No adrenal nodule. Kidneys and ureters: Both kidneys are normal in size. No hydronephrosis or nephrolithiasis on pre-con trast images. No solid masses or complex cysts which require follow up. The opacified renal calyces and ureters appear normal, without filling defect. Distal most left ureter is not visible but is riley te diminutive. No ureteral calcifications. Stomach, bowel and peritoneum: Stomach and small bowel are normal. Normal appendix. Normal colon. The re is a small amount of free fluid in the right and left anterior lower quadrants, nonspecific. No fo colette drainable fluid collections. Mild thickening of the retroperitoneal fascia.. Abdominal Lymph nodes: No central or retroperitoneal adenopathy. Vessels: Normal caliber abdominal aorta, IVC, and portal vein. . Reproductive organs: Unremarkable. Bladder: No definite calcifications seen on precontrast imaging. There is beam hardening artifact fro m right hip arthroplasty components. Postcontrast, no definite wall thickening or definite intralumin al mass. Much of the bladder is obscured. Pelvic Lymph nodes: Unremarkable. Bones: No aggressive osseous abnormality. Other: Neurostimulator power pack in the dorsal lumbar soft tissues. IMPRESSION: No CT evidence of urinary calcifications or obstructive uropathy. No suspicious urinary lesion to exp arden hematuria. Increasing splenomegaly over the past prior exams. Gallbladder edema and mucosal hyperemia without visible calcifications. This is nonspecific, particul eduardo in the setting of other systemic disease. Correlate clinically and consider right upper quadrant ultrasound if necessary.. Incidental note of circumferential distal esophageal wall thickening. This is most likely due to refl ux esophagitis. Correlate clinically. Reviewed by: Eden Bautista MD on 04/30/2024 10:12 AM PDT Approved by: Eden Bautista MD on 04/30/2024 10:12 AM PDT Station ID: [id number]
== END 2024-04-29 15:36 | disposition home or self-care (01) ==
LOC: DI 15:35
PROVIDERS: ATTEND Emergency Medicine
DX: R16.1 Splenomegaly, not elsewhere classified (principal); R93.3 Abnormal findings on diagnostic imaging of other parts of digestive tract
CPT/HCPCS: 36415; 82565

== ENCOUNTER 2024-06-29 10:43 | Emergency (ER) | payer MEDICARE ==
[2024-06-29 11:23] VITALS: BP 153/78; O2SAT 100
--- NOTE | 2024-06-29 11:38 | ED Physician Documentation ---
History of Present Illness - Stated complaint Stated Complaint: LT HAND POST SURG DRAINAGE/PX - Chief complaint Chief Complaint: Wound - History obtained from History obtained from: Patient - History of Present Illness Pain level max: 3 Pain level now: 3 - Additonal information Additional information: 68-year-old male presents to the emergency department stating that he had a trigger finger surgery done at [facility] with Dr. Mary Madsen and has had some of the sutures removed but is scheduled to go back on Sunday to have the remainder removed. He states he has had clear serous drainage from the wound over the past few days and today it felt more swollen so came to the hospital. He did not contact his orthopedist or the on-call orthopedist. No fevers. No chills. No cough or congestion. No redness. No streaking. Review of Systems Constitutional: denies: Fever, Chills PD PAST MEDICAL HISTORY - Past Medical History Past Medical History: Yes Cardiovascular: High cholesterol Respiratory: Asthma, Sleep apnea, CPAP use Neuro: None Endocrine/Autoimmune: Type 2 diabetes GI: GERD, Colon polyps : None HEENT: Chronic vision loss, Chronic hearing loss Psych: None Musculoskeletal: Osteoarthritis, Hemiplegia, Chronic back pain Derm: Psoriasis Other Past Medical History: Enlarged spleen with low platelet count, currently being worked up as at 06/29/24 - Past Surgical History Past Surgical History: Yes Ortho: Hip replacement, Knee replacement, Carpal Tunnel surgery, Spine surgery, Other HEENT: Myringotomy (tubes), Other - Present Medications Home Medications: Ambulatory Orders Medication Instructions Recorded Confirmed Albuterol Sulf [Ventolin Hfa 1 puffs ORAL DAILY 04/02/17 01/02/24 Inhaler] Gabapentin [Neurontin] 1 tab ORAL TID 04/02/17 01/02/24 Glipizide [Glipizide ER] 1 - 2 tab ORAL BID 04/02/17 01/02/24 Losartan [Cozaar] 25 tab ORAL DAILY 04/02/17 01/02/24 Modafinil [Provigil] 1 tab ORAL BID 04/02/17 01/02/24 Omeprazole 1 tab ORAL BID 04/02/17 01/02/24 Simvastatin [Zocor] 2 tab ORAL QPM 04/02/17 01/02/24 traZODone [Desyrel] 1 tab ORAL DAILY PM 04/02/17 01/02/24 Cholecalciferol [Vitamin D3] 5,000 unit PO DAILY 06/24/19 01/02/24 Cyanocobalamin (Vitamin B-12) 1,000 mcg PO DAILY 06/24/19 01/02/24 [Vitamin B-12] Diphenoxylate HCl/Atropine 1 each PO DAILY PRN 06/24/19 01/02/24 [Diphenoxylate-Atrop 2.5-0.025] Ferrous Gluconate [Iron] 65 mg PO DAILY 06/24/19 01/02/24 Folic Acid 1 mg PO DAILY 06/24/19 01/02/24 Insulin NPH Human Isophane 15 unit SUBQ BIDWM 06/24/19 01/02/24 [Humulin N Kwikpen] Metoclopramide HCl 5 mg PO DAILY PRN 06/24/19 01/02/24 Aspirin [Vazalore] 81 mg PO DAILY 04/06/22 01/02/24 Calcipotriene 60 ml TP BID 04/06/22 01/02/24 Calcipotriene [Dovonex] 60 gm TP BID 04/06/22 01/02/24 Cyclobenzaprine [Flexeril] 10 mg PO TID PRN 04/06/22 01/02/24 Montelukast [Singulair] 10 mg PO QPM 04/06/22 01/02/24 Morphine Sulfate [Morphine Sulfate 15 mg PO 04/06/22 2mg/ml soln] Ondansetron Odt [Zofran Odt] 4 mg TL Q6H PRN 04/06/22 01/02/24 Ciprofloxacin HCl [Cipro] 500 mg PO BID #14 tablet 05/18/23 01/02/24 metroNIDAZOLE [Flagyl] 500 mg PO TID 7 Days #21 tablet 05/18/23 01/02/24 oxyCODONE [Roxicodone] 5 mg PO Q4-6H PRN #15 tablet 05/18/23 01/02/24 predniSONE [Deltasone] 60 mg PO DAILY 5 Days #15 tablet 05/21/23 01/02/24 cephALEXin [Keflex] 500 mg PO Q6H #20 cap 06/29/24 - Allergies Allergies/Adverse Reactions: Allergies Allergy/AdvReac Type Severity Reaction Status Date / Time acetaminophen [From Vicodin] AdvReac Itching Verified 06/29/24 11:12 fluticasone [From Flonase] AdvReac Itching Verified 06/29/24 11:12 hydrocodone bitartrate * AdvReac Itching Verified 06/29/24 11:12 [From Vicodin] - Social History Does the pt smoke?: No Smoking Status: Never smoker Does the pt drink ETOH?: No Does the pt have substance abuse?: No - Immunizations Immunizations are current?: Yes PD ED PE NORMAL - Vitals Vital signs reviewed: Yes - General General: Alert and oriented X 3, No acute distress - HEENT HEENT: Moist mucous membranes - Derm Derm: Warm and dry - Extremities Extremities: Other (Left hand healing incision to the left palm. Mild clear drainage. No purulence. Also has mild swelling to the palmar aspect of the proximal phalanx of the fourth digit. No tenderness along the palmar aspect of the hand. NVI) - Neuro Neuro: Alert and oriented X 3 Results - Vitals Vitals: Vital Signs - 24 hr 06/29/24 10:53 Temperature 36.3 C L Heart Rate 72 Respiratory 16 Rate Blood Pressure 153/78 H O2 Saturation 100 Oxygen O2 Source Room air PD Medical Decision Making - ED course Complexity details: considered differential, d/w patient, d/w change consultant ED course: Discussed the case with Dr. Andrade, orthopedics on-call for Dr. Madsen, he recommends starting the patient on cephalexin and following up in the office tomorrow. The patient is well-appearing, nontoxic. Afebrile. There is no significant drainage to culture at this time. No evidence of deep space infection in the hand. We will place the patient on Keflex. Patient counseled regarding signs and symptoms for which I believe and urgent re-evaluation would be necessary. Patient with good understanding of and agreement to plan and is comfortable going home at this time This document was made in part using voice recognition software. While efforts are made to proofread this document, sound alike and grammatical errors may occur. Departure - Departure Disposition: 01 Home, Self Care Clinical Impression: Postoperative wound seroma Cellulitis Qualifiers: Site of cellulitis: extremity Site of cellulitis of extremity: upper extremity Laterality: left Qualified Code(s): L03.114 - Cellulitis of left upper limb Condition: Good Instructions: ED Seroma Post Op Follow-Up: Mary Madsen MD [Physician No Access] - Prescriptions: cephALEXin [Keflex] 500 mg PO Q6H #20 cap Comments: Your prescription was sent to [facility] in [place]. Please follow-up with Dr. Madsen tomorrow. I spoke with Dr. Andrade today. He recommended starting you on Keflex. Forms: PCP List Discharge Date/Time: 06/29/24 12:44
== END 2024-06-29 12:44 | disposition home or self-care (01) ==
LOC: ED 10:43
DX: L76.34 Postprocedural seroma of skin and subcutaneous tissue following other procedure (principal); L03.114 Cellulitis of left upper limb; E78.00 Pure hypercholesterolemia, unspecified; J45.909 Unspecified asthma, uncomplicated; G47.30 Sleep apnea, unspecified; E11.9 Type 2 diabetes mellitus without complications; Z86.010 Personal history of colon polyps; G81.90 Hemiplegia, unspecified affecting unspecified side; Z79.4 Long term (current) use of insulin; Z79.899 Other long term (current) drug therapy
CPT/HCPCS: 99282; 99284

== ENCOUNTER 2024-07-26 08:36 | Outpatient (CLI) | payer MEDICARE ==
[2024-07-26 09:02] LABS: BASOPHILS % (AUTO) 0.2 %; EOSINOPHILS % (AUTO) 0.2 %; HCT - HEMATOCRIT 38.4 % (42.0-52.0); HGB - HEMOGLOBIN 12.8 g/dL (14.0-18.0); LYMPHOCYTES # (AUTO) 0.3 10^3/uL (1.5-3.5); LYMPHOCYTES % (AUTO) 6.2 %; MEAN CORPUSCULAR HEMOGLOBIN 29.4 pg (27.0-31.0); MEAN CORPUSCULAR HGB CONC 33.3 g/dL (32.0-36.0); MEAN CORPUSCULAR VOLUME 88.1 fL (80.0-94.0); MEAN PLATELET VOLUME 11.1 fL (7.4-11.4); MONOCYTES # (AUTO) 0.1 10^3/uL (0.0-1.0); MONOCYTES % (AUTO) 2.7 %; NEUTROPHILS # (AUTO) 3.6 10^3/uL (1.5-6.6); NEUTROPHILS % (AUTO) 90.5 %; PLT - PLATELET COUNT 47 10^3/uL (130-450); RED BLOOD COUNT 4.36 10^6/uL (4.70-6.10); RED CELL DISTRIBUTION WIDTH 13.2 % (12.0-15.0)
== END 2024-07-26 08:37 | disposition home or self-care (01) ==
LOC: LAB 08:36
PROVIDERS: ATTEND Physician Assistant Medical
DX: M65.332 Trigger finger, left middle finger (principal)
CPT/HCPCS: 36415; 85025; 85651; 86140